=== PATIENT | male | born 1960 | race Caucasian/White ===

== ENCOUNTER → 2018-04-22 07:06 | Outpatient (CLI) | payer BC, SELFPAY ==
[2018-04-22 15:31] LABS: Alanine Aminotransferase 70 U/L (12-78); Albumin Level 3.7 gm/dL (3.4-5.0); Albumin/Globulin Ratio 1.1 (1.1-1.8); Alkaline Phosphatase 74 U/L (46-116); Anion Gap 13.2 mEq/L (5-15); Aspartate Amino Transferase 28 U/L (15-37); Bilirubin,Total 0.6 mg/dL (0.2-1.0); Blood Urea Nitrogen 17 mg/dL (7-18); Calcium 9.1 mg/dL (8.5-10.1); Carbon Dioxide 28 mmol/L (21.0-32.0); Chloride 103 mmol/L (98-107); Chol/HDL Ratio 7.2 (1-3.5); Cholesterol 286 mg/dL (140-200); Creatinine,Serum 1.03 mg/dL (0.70-1.30); Estimated Glomerular Filt Rate 74 ml/min (>60); GFR (African American) 89 ML/MIN (>60); Globulin 3.5 gm/dl (1.3-3.2); Glucose 117 mg/dL (74-106); HDL Cholesterol 40 mg/dL (27-67); LDL Cholesterol 214 mg/dL (0-130); Potassium 4.2 mmoL/L (3.5-5.1); Prostate Specific Ag Screen 1.1 ng/mL (0.0-4.0); Sodium 140 mmol/L (136-145); Total Protein,Serum 7.2 gm/dL (6.4-8.2); Triglycerides 159 mg/dL (30-200); VLDL Cholesterol 32 mg/dL (0-40)
== END ==
PROVIDERS: PCP Family Medicine; Visit Provider Family Medicine
DX: Z00.00 Encounter for general adult medical examination without abnormal findings (principal); E78.5 Hyperlipidemia, unspecified
CPT/HCPCS: 36415; 80053; 80061; G0103

== ENCOUNTER → 2018-07-25 07:05 | Outpatient (CLI) | payer BC, SELFPAY ==
[2018-07-25 13:47] LABS: Alanine Aminotransferase 56 U/L (12-78); Albumin Level 3.9 gm/dL (3.4-5.0); Albumin/Globulin Ratio 1.3 (1.1-1.8); Alkaline Phosphatase 83 U/L (46-116); Anion Gap 15.3 mEq/L (5-15); Aspartate Amino Transferase 23 U/L (15-37); Bilirubin,Total 0.4 mg/dL (0.2-1.0); Blood Urea Nitrogen 20 mg/dL (7-18); Calcium 9.4 mg/dL (8.5-10.1); Carbon Dioxide 26 mmol/L (21.0-32.0); Chloride 107 mmol/L (98-107); Chol/HDL Ratio 3.3 (1-3.5); Cholesterol 128 mg/dL (140-200); Estimated Glomerular Filt Rate 76 ml/min (>60); GFR (African American) 93 ML/MIN (>60); Globulin 3.1 gm/dl (1.3-3.2); Glucose 116 mg/dL (74-106); HDL Cholesterol 39 mg/dL (27-67); LDL Cholesterol 76 mg/dL (0-130); Potassium 4.3 mmoL/L (3.5-5.1); Sodium 144 mmol/L (136-145); Triglycerides 66 mg/dL (30-200); VLDL Cholesterol 13 mg/dL (0-40)
== END ==
PROVIDERS: PCP Family Medicine; Visit Provider Family Medicine
DX: E78.5 Hyperlipidemia, unspecified (principal)
CPT/HCPCS: 36415; 80053; 80061

== ENCOUNTER → 2019-05-29 07:05 | Outpatient (CLI) | payer OTHER, SELFPAY ==
[2019-05-29 14:16] LABS: Alanine Aminotransferase 58 U/L (21-72); Albumin Level 3.8 g/dL (3.4-5.0); Albumin/Globulin Ratio 1.2 (1.1-1.8); Alkaline Phosphatase 77 U/L (46-116); Anion Gap 13.1 mEq/L (5-15); Aspartate Amino Transferase 27 U/L (15-37); Bilirubin,Total 0.4 mg/dL (0.2-1.0); Blood Urea Nitrogen 17 mg/dL (7-18); Carbon Dioxide 28 mmol/L (21.0-32.0); Chloride 108 mmol/L (98-107); Chol/HDL Ratio 3.5 (1-3.5); Cholesterol 138 mg/dL (140-200); Creatinine,Serum 0.99 mg/dL (0.70-1.30); Estimated Glomerular Filt Rate 77 ml/min (>60); GFR (African American) 93 ML/MIN (>60); Globulin 3.2 gm/dl (1.3-3.2); Glucose 120 mg/dL (74-106); HDL Cholesterol 39 mg/dL (27-67); LDL Cholesterol 76 mg/dL (0-130); Potassium 4.1 mmoL/L (3.5-5.1); Sodium 145 mmol/L (137-145); Triglycerides 116 mg/dL (30-200); VLDL Cholesterol 23 mg/dL (0-40)
== END ==
PROVIDERS: Visit Provider Family Medicine
DX: E78.5 Hyperlipidemia, unspecified (principal); R03.0 Elevated blood-pressure reading, without diagnosis of hypertension; Z00.00 Encounter for general adult medical examination without abnormal findings; Z13.220 Encounter for screening for lipoid disorders
CPT/HCPCS: 36415; 80053; 80061

== ENCOUNTER → 2020-05-12 11:12 | Outpatient (CLI) | payer OTHER, SELFPAY | PROVIDERS: PCP Family Medicine; Visit Provider Family Medicine | DX: Z20.822 Contact with and (suspected) exposure to COVID-19 (principal); U07.1 COVID-19 | CPT/HCPCS: U0003 ==

== ENCOUNTER → 2020-08-09 07:19 | Outpatient (CLI) | payer OTHER, SELFPAY ==
[2020-08-09 14:15] LABS: Chloride 103 mmol/L (98-107)
[2020-08-09 14:16] LABS: Potassium 4.1 mmoL/L (3.5-5.1); Sodium 140 mmol/L (136-145)
[2020-08-09 14:18] LABS: Alanine Aminotransferase 51 U/L (12-78); Anion Gap 13.1 mEq/L (5-15); Aspartate Amino Transferase 34 U/L (17-59); Blood Urea Nitrogen 19 mg/dl (9-20); Carbon Dioxide 28 mmol/L (22.0-30.0); Estimated Glomerular Filt Rate 86 ml/min (>60); GFR (African American) 104 ML/MIN (>60)
[2020-08-09 14:19] LABS: Albumin Level 4.2 g/dl (3.5-5.0); Albumin/Globulin Ratio 1.6 (1.1-1.8); Alkaline Phosphatase 81 U/L (38-126); Bilirubin,Total 0.6 mg/dl (0.2-1.3); Calcium 9.4 mg/dl (8.4-10.2); Chol/HDL Ratio 4.3 (1-3.5); Cholesterol 159 mg/dl (140-200); Globulin 2.6 g/dL (1.3-3.2); Glucose 103 mg/dl (74-100); HDL Cholesterol 37 mg/dl (40-60); Total Protein,Serum 6.8 g/dl (6.3-8.2); Triglycerides 177 mg/dl (30-150); VLDL Cholesterol 35 mg/dL (0-40)
[2020-08-09 14:30] LABS: Direct LDL Cholesterol 96.56 mg/dL (100-129)
[2020-08-09 15:19] LABS: Prostate Specific Ag Screen 1.3 ng/ml (0.0-4.0)
== END ==
PROVIDERS: Visit Provider Family Medicine
DX: Z00.00 Encounter for general adult medical examination without abnormal findings (principal); E78.5 Hyperlipidemia, unspecified; K21.9 Gastro-esophageal reflux disease without esophagitis; Z12.5 Encounter for screening for malignant neoplasm of prostate
CPT/HCPCS: 36415; 80053; 80061; G0103

== ENCOUNTER 2021-05-20 19:05 | Emergency (ER) | payer OTHER, SELFPAY ==
--- NOTE | 2021-05-20 19:15 | XR_ITS ---
PROCEDURE INFORMATION: Exam: XR Right Ribs with PA Chest Exam date and time: 05/20/2021 7:15 PM Age: 61 years old Clinical indication: Injury or trauma; Fall; Rib area; Blunt trauma (contusions or hematomas); Injury date: 05/20/2021; Injury details: Fell into his truck injurying RT ribs; Additional info: Right sided rib pain after falling into truck TECHNIQUE: Imaging protocol: XR Right ribs with PA chest. Views: 3 views COMPARISON: UEAJW/ORT MRI-UP EXT ANY JNT W/O-RT 03/25/2015 1:03 PM FINDINGS: Lungs: Mild bibasilar atelectasis. No consolidation. Pleural spaces: Unremarkable. No pleural effusion. No pneumothorax. Heart/Mediastinum: Normal heart size. Bones/joints: No acute displaced rib fracture. Spondylosis. IMPRESSION: 1. No acute displaced fracture. 2. Mild bibasilar atelectasis.
[2021-05-20 19:22] VITALS: BP 156/96; PULSE 86; RESP 18; TEMP 36.7; O2SAT 96; BMI 32.5
--- NOTE | 2021-05-20 20:31 | HMH.EDGENADL ---
ED Disposition Clinical Impression: Chest wall pain Disposition: Home, Self-Care Condition on Discharge: Good Referrals: Ric Chowdhury MD [Primary Care Provider] - - Critical Care Critical Care Time: No Attestation: On 05/20/21, the high probability of a clinically significant, sudden or life threatening deterioration of the following system(s) required my full and direct attention, intervention and personal management. The time I documented below is in addition to time spent performing reported procedures but includes the following listed in this critical care notation. Medical Decision Making - Medical Records Medical records reviewed: Yes: I reviewed the patient's medical records. - Maico Inquiry Pt receiving controlled substance: No Vital Signs: 05/20/21 19:22 05/20/21 20:32 Temperature 98.0 F 98.2 F Temperature Source Oral Oral Pulse Rate 81 Pulse Rate [Apical] 86 Respiratory Rate 18 20 Blood Pressure 159/90 H Blood Pressure [Right Arm] 156/96 H Blood Pressure Mean [Right Arm] 116 Blood Pressure Source Automatic Cuff Blood Pressure Source [Right Arm] Manual Cuff/ Doppler Blood Pressure Position Sitting Blood Pressure Position [Right Arm] Sitting 02 Sat by Pulse Oximetry 96 Oxygen Delivery Method Room Air Room Air Medical Decision Narrative: Pt to the ED today for further evaluation after falling into his car door causing right sided chest pain. Pt is well appearing, in no acute distress with normal and stable vital signs. Pt does not want further pain medication management at this time. We will obtain a CXR and rib series on the right side for further evaluation of fracture. On reassessment he has remained stable, hes got no evidence of rib fractures that are displaced. Given this we will DC to [facility] with PCP. Pt given return precautions to return to the ED with any new or worsening sympotms and has verbalized understanding with this plan. General Adult HPI - General Chief complaint: Fall Stated complaint: AO02/05@1800 right rib injury Time Seen by Provider: 05/20/21 19:15 Mode of Arrival: Ambulatory Limitations: No Limitations Description of Symptoms (Recalled from ER Triage Doc. by RN): Pt states that roughly one hour ago he had his door open to his truck while carrying in groceries when he slipped on the ice and fell into his front seat of his truck hitting the right side of his ribs. Denies any other injuries and states that the fall just knocked the wind out of him. - History of Present Illness HPI narrative: Pt presents to the ED with chest wall pain after a fall, states taht he was reaching into the truck to get a hold of the steering wheel after the truck started to slip on ice. States that he fell on the door of his truck and hit the right side of his chest on the door. 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 Endorses chest wall pain that was not occurring prior and is mildly worse with breath, states his wanted him to come in. - Related Data Allergies Allergy/AdvReac Type Severity Reaction Status Date / Time ciprofloxacin [From CIPRO] Allergy Intermediate I-HIVES Unverified 04/02/17 15:31 [facility] History - Hepatitis A Screen Drug use history?: No High risk sexual behaviors?: No History of sexually transmitted infection?: No Currently employed?: No Childcare worker?: No Do you have indoor plumbing?: Yes Do you have electricity?: Yes Attestation statement:: This patient has been screened for Hepatitis A risk factors. ROS Obtained: Yes All systems reviewed & no additional complaints - Constitutional Constitutional: Reports system reviewed and no additional complaints, except as docu Physical Exam - General General appearance: alert, in no apparent distress - Head Head exam: atraumatic, normocephalic, normal inspection - Eye Eye exam: Present: normal appearance, EOMI - ENT ENT exam: Pres
[2021-05-20 20:32] VITALS: BP 159/90; PULSE 81; RESP 20; TEMP 36.8; O2SAT 99
== END 2021-05-20 20:38 | disposition home or self-care (01) ==
PROVIDERS: Emergency Provider Student in an Organized Health Care Education/Training Program; PCP Family Medicine
DX: S20.211A Contusion of right front wall of thorax, initial encounter (principal); W00.0XXA Fall on same level due to ice and snow, initial encounter; Y92.019 Unspecified place in single-family (private) house as the place of occurrence of the external cause
CPT/HCPCS: 71101; 99282

== ENCOUNTER → 2021-08-24 06:08 | Outpatient (CLI) | payer OTHER, SELFPAY ==
[2021-08-24 14:21] LABS: Alanine Aminotransferase 55 U/L (12-78); Albumin Level 4.3 g/dl (3.5-5.0); Albumin/Globulin Ratio 1.8 (1.1-1.8); Alkaline Phosphatase 84 U/L (38-126); Anion Gap 12.1 mEq/L (5-15); Aspartate Amino Transferase 31 U/L (17-59); Bilirubin,Total 0.4 mg/dl (0.2-1.3); Blood Urea Nitrogen 25 mg/dl (9-20); Calcium 9.7 mg/dl (8.4-10.2); Carbon Dioxide 30 mmol/L (22.0-30.0); Chloride 104 mmol/L (98-107); Chol/HDL Ratio 4.6 (1-3.5); Cholesterol 188 mg/dl (140-200); Estimated Glomerular Filt Rate 98 ml/min (>60); GFR (African American) 119 ML/MIN (>60); Globulin 2.4 g/dL (1.3-3.2); Glucose 120 mg/dl (74-100); HDL Cholesterol 41 mg/dl (40-60); Potassium 4.1 mmoL/L (3.5-5.1); Sodium 142 mmol/L (136-145); Total Protein,Serum 6.7 g/dl (6.3-8.2); Triglycerides 192 mg/dl (30-150); VLDL Cholesterol 38 mg/dL (0-40)
[2021-08-24 14:32] LABS: Direct LDL Cholesterol 109.51 mg/dL (100-129)
[2021-08-24 14:53] LABS: Prostate Specific Ag Screen 0.8 ng/ml (0.0-4.0)
== END ==
PROVIDERS: Visit Provider Family Medicine
DX: E78.5 Hyperlipidemia, unspecified (principal); Z12.5 Encounter for screening for malignant neoplasm of prostate; I10 Essential (primary) hypertension
CPT/HCPCS: 36415; 80053; 80061; G0103

== ENCOUNTER → 2021-10-31 17:00 | Outpatient (CLI) | payer OTHER, SELFPAY ==
--- NOTE | 2021-10-31 17:09 | XR_ITS ---
PROCEDURE INFORMATION: Exam: XR Chest Exam date and time: 10/31/2021 5:10 PM Age: 61 years old Clinical indication: Patient HX: SOA, cough, HX smoker TECHNIQUE: Imaging protocol: Radiologic exam of the chest. Views: 2 views. COMPARISON: CR XR RIBS RT MIN 3V W CXR1V 05/20/2021 7:18 PM FINDINGS: Lungs: No lobar consolidation, pleural effusion or pulmonary edema. Pleural spaces: See Lungs finding. Heart/Mediastinum: Unremarkable. No cardiomegaly. Bones/joints: Unremarkable. IMPRESSION: No lobar consolidation, pleural effusion or pulmonary edema. Plain films are relatively insensitive for detecting any possible ground glass opacities.
== END ==
PROVIDERS: PCP Family Medicine; Visit Provider Family Medicine
DX: I10 Essential (primary) hypertension (principal); R05.9 Cough, unspecified
CPT/HCPCS: 71046

== ENCOUNTER → 2021-12-13 07:43 | Outpatient (CLI) | payer OTHER, SELFPAY ==
--- NOTE | 2021-12-13 | CA_ITS ---
FINAL REPORT TECHNIQUE: Grayscale, color Doppler and duplex Doppler ultrasound of the kidneys, aorta and renal arteries was performed. Multiple velocities were measured. CLINICAL HISTORY: .HTN FINDINGS: Aorta velocity: 74 cm/sec Right kidney: 11.9 cm. No evidence of hydronephrosis or mass. Right intrarenal RI: 0.69 Right renal artery velocity: 170 cm/sec. Right RAR (Renal artery-Aortic Ratio): 2.3 Left Kidney: 11.4 cm. No evidence of hydronephrosis or mass. Left intrarenal RI: 0.70 Left renal artery velocity: 205 cm/sec. Left RAR (Renal Artery-Aortic Ratio): 2.8 IMPRESSION: No evidence of significant renal artery stenosis on the right. Less than 60% renal artery stenosis on the left. CT angiogram or postcontrast MR angiogram would be more sensitive for evaluation of possible renal artery stenosis. Reviewed, Interpreted and Dictated by Hal Ontiveros III, MD Transcribed by Brittany Ortiz Authenticated and [facility]
== END ==
PROVIDERS: PCP Family Medicine; Visit Provider Family Medicine
DX: I10 Essential (primary) hypertension (principal)
CPT/HCPCS: 93976

== ENCOUNTER → 2022-05-28 13:07 | Outpatient (CLI) | payer OTHER, SELFPAY ==
--- NOTE | 2022-05-28 | CA_ITS ---
APPROVED REPORT Exam: Exercise Treadmill Technologist: Marivel Forte, Ht: 6 ft 0 in Wt: 250 lbs BSA: 2.34 m2 HR: 69 bpm BP: 152/82 mmHg Medical History Medications: Atorvastatin,,,,, Ibuprofen,,,,, BisOPROLOL,,,,, OmPEprazole,,,,, Valsartan-HCTZ,,,,, Stress Test Details Test: Ramirez HR Resting HR: 72 bpm Max Heart Rate (APMHR): 157 bpm Max HR Achieved: 133 bpm Target HR (85% APMHR): 133 bpm % of APMHR: 85 Recovery HR: 82 bpm BP Resting BP: 172/98 mmHg Max BP: 200/90 mmHg Recovery BP: 160.0/77.0 mmHg ECG Clinical Exercise duration: 09:50 min Highest Stage Achieved: III Exercise capacity: 10.1 METs Stress ECG Conclusion Symptoms: SOA/ Chest tightness. Arrhythmias/Ectopy: Rare PAC/PVC ST-T Changes: Horizontal ST depression in 3 contiguous anterior leads of almost 2mm with normalization after recovery. Report notes patient complains of chest tightness. Positive test. Recommend further workup. Test Summary REST . . . . . . . Sitting REST . . . . . . . Standing REST 09:46 0.0 0.0 72 . 172/ 98 . . Stage 1 01:00 10.0 1.7 93 . . . . Stage 1 02:00 10.0 1.7 98 . 160/ 98 . . Stage 1 03:00 10.0 1.7 100 . 160/ 98 . . Stage 2 01:00 12.0 2.5 107 . . . . Stage 2 02:00 12.0 2.5 112 . 190/102 . . Stage 2 03:00 12.0 2.5 112 . 190/102 . . Stage 3 01:00 14.0 3.4 121 . . . . Stage 3 02:00 14.0 3.4 126 . . . . Stage 3 . . . . . . . Stage held Stage 3 03:00 14.0 3.4 131 . . . . Stage 3 . . . . . . . Stage resumed Stage 3 03:50 14.0 3.4 133 . . . Stop exercise at 09:50 RECOVERY 01:00 0.0 0.0 110 . . . . RECOVERY 02:00 0.0 0.0 101 . 200/ 90 . . RECOVERY 03:00 0.0 0.0 86 . 172/ 79 . . RECOVERY 03:49 0.0 0.0 82 . 160/ 77 . . Electronically signed by : George Shelton MD 05/28/2022 19:44:45
[2022-05-28 14:26] LABS: Alanine Aminotransferase 39 U/L (12-78); Albumin Level 4.3 g/dl (3.5-5.0); Albumin/Globulin Ratio 1.6 (1.1-1.8); Alkaline Phosphatase 93 U/L (38-126); Anion Gap 11.6 mEq/L (5-15); Aspartate Amino Transferase 28 U/L (17-59); Bilirubin,Total 0.9 mg/dl (0.2-1.3); Blood Urea Nitrogen 22 mg/dl (9-20); Calcium 9.2 mg/dl (8.4-10.2); Carbon Dioxide 28 mmol/L (22.0-30.0); Chloride 106 mmol/L (98-107); Chol/HDL Ratio 3.5 (1-3.5); Cholesterol 137 mg/dl (140-200); Estimated Glomerular Filt Rate 85 ml/min (>60); GFR (African American) 103 ML/MIN (>60); Globulin 2.7 g/dL (1.3-3.2); Glucose 95 mg/dl (74-100); HDL Cholesterol 39 mg/dl (40-60); Potassium 3.6 mmoL/L (3.5-5.1); Sodium 142 mmol/L (136-145); Triglycerides 146 mg/dl (30-150); VLDL Cholesterol 29 mg/dL (0-40)
[2022-05-28 14:42] LABS: Direct LDL Cholesterol 76.21 mg/dL (100-129)
== END ==
LOC: RT 13:08
PROVIDERS: PCP Family Medicine; Visit Provider Family Medicine
DX: R07.9 Chest pain, unspecified (principal); I10 Essential (primary) hypertension; E78.5 Hyperlipidemia, unspecified
CPT/HCPCS: 36415; 80053; 80061; 93017

== ENCOUNTER 2022-06-07 08:20 | Day surgery (SDC) | payer OTHER, SELFPAY ==
[2022-06-07] VITALS (14 sets, daily range): BP systolic 115–159; BP diastolic 67–96; PULSE 52–68; RESP 15–18; O2SAT 96–100; BMI 34.0
--- NOTE | 2022-06-07 07:19 | IR_ITS ---
APPROVED REPORT Patient Location: Outpatient Pvc Monitor: DREA Rodriguez RT (R) PROCEDURES Selective coronary angiogram Drug-eluting stent deployment to the proximal and mid LAD in a contiguous manner Intravascular ultrasound to the LAD INDICATION Severe to critical coronary artery disease, High risk abnormal stress test Informed consent was obtained prior to the procedure. COMPLICATIONS None Estimated Blood Loss: Less than 10 mls TECHNIQUE One percent lidocaine used to anesthetize the right anterior aspect of the wrist. The right radial artery was accessed via the Seldinger technique. A 6 Syriac sheath was placed in the right radial artery. 2.5 mg of verapamil, 800 mcg of nitroglycerin, 1mg Lidocaine and 5000 U Heparin were given through the arterial sheath. The papa catheter was also used to perform selective coronary angiogram. At the end the diagnostic angiogram therapeutic heparin was administered giving a therapeutic ACT and the guide catheter was placed in the left main artery followed by a Choice PT extra-support wire being placed on the LAD. A 3.5 x 38 mm resolute [place] stent was deployed in the proximal to mid LAD initially at 14 reinaldo. A 3.5 x 12 mm noncompliant balloon was deployed in the proximal and mid LAD and deployed at 20 reinaldo. At the end of the procedure intravascular ultrasound probe was advanced which demonstrated the stent was not fully expanded and required additional post stent dilatation. It also demonstrated there was significant plaque distal to the first stent and the stent did not and on normal tissue/vessel. Because of this a 3 mm x 22 mm resolute Manny stent was placed in the midportion of the LAD overlapping the distal aspect of the first stent and then deployed at 14 reinaldo. The balloon was brought back and deployed at 20 reinaldo to mesh the 2 stents. Following this a 4 mm x 15 mm balloon was deployed in the proximal and midportion of the first stent and then deployed at 20 reinaldo to further post dilate. Following this intravascular ultrasound probe was advanced which demonstrated excellent stent apposition and expansion of the stent with excellent transitioning into the mid LAD. After achieving excellent angiograph results the apparatus was removed the sheath was removed good hemostasis was achieved using TR banding patient was transferred to the postop putting in stable condition ANGIOGRAPHIC RESULTS The left main artery Normal The left anterior descending artery Has critical proximal eccentric 90% stenosis followed by additional 50% mid vessel stenosis The circumflex artery Is a large codominant vessel and has a proximal 40% stenosis The right coronary artery Is codominant and has mild 10% mid vessel luminal regularities The GAUTAM ventriculogram reveals Not performed The left ventricular end-diastolic pressure Not measured IMPRESSION Critical proximal to mid LAD disease as described above with successful stenting reducing the critical disease to 0% with 2 contiguous drug-eluting stents Persistent mild to moderate disease in a proximal codominant circumflex artery PLAN 1. Brilinta 90 twice daily plus aspirin 81 mg daily 2. LDL less than 55 to be achieved with high intensity statin 3. Cardiac rehabilitation 4. Aggressive risk factor modification 5. Avoidance of tobacco products Electronically signed by : Ezequiel Ferreira MD 06/07/2022 11:13:58
[2022-06-07 09:22] LABS: Basophils % 0.9 % (0.1-2.0); Eosinophils # 0.1 K/mm3 (0.0-0.4); Eosinophils % 1.4 % (0.1-12.0); Hematocrit 41.5 % (42.0-52.0); Hemoglobin 13.7 g/dL (14.1-18.0); Lymphocytes # 1.4 K/mm3 (0.7-4.5); Lymphocytes % 30.1 % (10-50); Mean Corpuscular Volume 96.8 fl (80-94); Mean Platelet Volume 8.7 fl (7.4-10.4); Monocytes # 0.3 K/mm3 (0.1-1.0); Monocytes % 6.5 % (1.7-9.3); Neutrophils # 2.9 K/mm3 (1.8-7.8); Platelet Count 248 K/mm3 (142-424); Red Blood Count 4.28 M/mm3 (4.60-6.20); Red Cell Distribution Width 12.6 % (11.5-17.5); White Blood Count 4.8 K/mm3 (4.8-10.8)
[2022-06-07 09:26] LABS: Anion Gap 7.8 mEq/L (5-15); Blood Urea Nitrogen 19 mg/dl (9-20); Calcium 9.4 mg/dl (8.4-10.2); Carbon Dioxide 29 mmol/L (22.0-30.0); Chloride 106 mmol/L (98-107); Creatinine Clearance Estimated 122 mL/min (50-200); Estimated Glomerular Filt Rate 75 ml/min (>60); GFR (African American) 91 ML/MIN (>60); Glucose 115 mg/dl (74-100); Potassium 3.8 mmoL/L (3.5-5.1); Sodium 139 mmol/L (136-145)
[2022-06-07 11:52] LABS: CATHL Activated Clotting Time 247 SEC (74-125)
--- NOTE | 2022-06-07 13:18 | HMH.PHACL ---
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
== END 2022-06-07 15:04 | disposition home or self-care (01) ==
PROVIDERS: PCP Family Medicine; Visit Provider Internal Medicine
DX: R94.39 Abnormal result of other cardiovascular function study (principal); Z79.899 Other long term (current) drug therapy; I25.118 Atherosclerotic heart disease of native coronary artery with other forms of angina pectoris; I45.10 Unspecified right bundle-branch block; E78.5 Hyperlipidemia, unspecified; I10 Essential (primary) hypertension; Z82.49 Family history of ischemic heart disease and other diseases of the circulatory system
CPT/HCPCS: 80048; 85025; 85347; 92928; 92978; 99152; 99153; C1725; C1769; C1876; C9600; J1644; Q9967

== ENCOUNTER → 2022-06-18 08:07 | Outpatient (CLI) | payer OTHER, SELFPAY ==
[2022-06-18 09:43] LABS: Basophils # 0.1 K/mm3 (0-0.2); Basophils % 0.9 % (0.1-2.0); Eosinophils # 0.1 K/mm3 (0.0-0.4); Eosinophils % 1.5 % (0.1-12.0); Hematocrit 42.3 % (42.0-52.0); Hemoglobin 14.3 g/dL (14.1-18.0); Lymphocytes # 1.5 K/mm3 (0.7-4.5); Lymphocytes % 28.5 % (10-50); Mean Corpuscular HGB Conc 33.9 g/dL (31.8-35.4); Mean Corpuscular Volume 94.5 fl (80-94); Mean Platelet Volume 9.1 fl (7.4-10.4); Monocytes # 0.3 K/mm3 (0.1-1.0); Monocytes % 5.3 % (1.7-9.3); Neutrophils # 3.4 K/mm3 (1.8-7.8); Neutrophils % 63.8 % (37.0-80.0); Platelet Count 259 K/mm3 (142-424); Red Blood Count 4.47 M/mm3 (4.60-6.20); Red Cell Distribution Width 12.3 % (11.5-17.5); White Blood Count 5.3 K/mm3 (4.8-10.8)
[2022-06-18 09:58] LABS: Chloride 103 mmol/L (98-107); Sodium 140 mmol/L (136-145)
[2022-06-18 10:01] LABS: Blood Urea Nitrogen 16 mg/dl (9-20); Estimated Glomerular Filt Rate 85 ml/min (>60); GFR (African American) 103 ML/MIN (>60)
[2022-06-18 10:02] LABS: Calcium 9.2 mg/dl (8.4-10.2); Carbon Dioxide 26 mmol/L (22.0-30.0); Glucose 122 mg/dl (74-100)
== END ==
PROVIDERS: PCP Family Medicine; Visit Provider Internal Medicine
DX: I25.10 Atherosclerotic heart disease of native coronary artery without angina pectoris (principal); Z95.5 Presence of coronary angioplasty implant and graft
CPT/HCPCS: 36415; 80048; 85025

== ENCOUNTER 2022-06-27 13:59 | Outpatient (RCR) | payer OTHER, SELFPAY | END 2022-08-02 15:10 | disposition home or self-care (01) | LOC: PT 13:59 | PROVIDERS: Visit Provider Internal Medicine | DX: I25.10 Atherosclerotic heart disease of native coronary artery without angina pectoris (principal); Z95.5 Presence of coronary angioplasty implant and graft | CPT/HCPCS: 93798 ==

== ENCOUNTER → 2022-07-06 14:53 | Outpatient (CLI) | payer OTHER, SELFPAY ==
--- NOTE | 2022-07-06 14:57 | CA_ITS ---
APPROVED REPORT EXAM: Comprehensive 2D, Doppler, and color-flow Echocardiogram Flat Locker: Ifeoma Mayo RDCS Ht: 6 ft 0 in Wt: 245lbs BSA: 2.32 BP: 126/88 mmHg Indications: CAD,SOA 2D Dimensions LVOT 2.32 cm (M/F) 1.5-2.5 M-Mode Dimensions RVDd 2.30 cm (0.9-2.6) LA Diam 3.91 cm (1.9-4.0) LVDd 5.64 cm (3.5-5.7) Ao Diam 3.51 cm (2.0-3.7) LVDs 3.14 cm (3.5-5.7) IVSd 0.97 cm (0.6-1.1) PWd 1.05 cm (0.6-1.1) EF (Teich) 75.00% FS 44.30% EDV (Teich) 156.20 mL ESV (Teich) 39.10 mL LV Diastology E Decel Time 227.00 (160-240 msec) E/A Ratio 0.8 MED E' 6.50 (< 7 cm/sec) E'/MED E' Ratio 8.97 (>14) LAT E' 8.80 (<10 cm/sec) E/LAT E' Ratio 6.63 (>14) Aortic Valve LVOT Max 157.00 (70-110 cm/s) LVOT VTI 37.90 cm AoV Peak Raza. 168.00 (50-130 cm/s) AO Peak GR. 11.30 mmHg AO Mean GR. 5.60 (<5 mmHg) AO VTI 34.72 (18-25 cm) ROSY (VTI) 4.61 (2.5-4.5 cm2) Mitral Valve MV E Max Raza. 58.00 (40-130 cm/s) MV A Velocity 76.00 (40-130 cm/s) E/A Ratio 0.77 MV Decel. Time 227.00 (160-240 ms) MV PHT 66.00 ms Left Ventricle Left atrium is mildly enlarged, left ventricle is normal size mild concentric left ventricular hypertrophy, estimated ejection fraction 55% with no regional wall motion abnormality, grade 1 diastolic dysfunction seen without tissue Doppler evidence of raise left atrial pressure. Right Ventricle Right atrium and right ventricular mildly enlarged with normal contractility. Aortic Valve Aortic valve is minimally thickened and fibrosed there is no aortic stenosis or aortic insufficiency. Mitral Valve Mitral valve is grossly normal, there is trace mitral regurgitation. Tricuspid Valve Tricuspid grossly normal, there is trace tricuspid regurgitation, tricuspid regurgitation jet velocity is inadequate for calculation of the right ventricular systolic pressure. Pulmonic Valve Pulmonic valve is poorly visualized. Great Vessels Aortic root is normal size. Inferior vena cava is normal size with normal inspiratory collapse. Pericardium No significant pericardial effusion noted. Conclusion 1. Mild biatrial enlargement, normal left ventricular size, estimated ejection fraction 55% with no regional wall motion abnormality, grade 1 diastolic dysfunction seen without tissue Doppler evidence of raise left atrial pressure. 2. Mildly enlarged right ventricle with normal contractility. 3. Trace mitral and tricuspid regurgitation. 4. No significant pericardial effusion noted. 5. Inferior vena cava normal 7 normal inspiratory collapse. Electronically signed by : Gavino Tesfaye MD 07/06/2022 16:07:19
== END ==
PROVIDERS: PCP Family Medicine; Visit Provider Physician Assistant
DX: R06.09 Other forms of dyspnea (principal)
CPT/HCPCS: 93306

== ENCOUNTER → 2022-09-04 15:53 | Outpatient (CLI) | payer OTHER, SELFPAY ==
--- NOTE | 2022-09-04 15:58 | XR_ITS ---
FINAL REPORT CLINICAL HISTORY: HIP PAIN NO INJURY FINDINGS: Left hip Three views were obtained. There is no acute fracture or dislocation. There are mild degenerative changes of both hips and in the lower lumbar spine. No soft tissue abnormality is identified. IMPRESSION: Degenerative changes without acute bony abnormality. Reviewed, Interpreted and Dictated by Hal Ontiveros III, MD Transcribed by Yin Jeter Authenticated and [facility]
== END ==
PROVIDERS: PCP Family Medicine; Visit Provider Family Medicine
DX: M25.552 Pain in left hip (principal)
CPT/HCPCS: 73502

== ENCOUNTER 2022-10-15 07:00 | Outpatient (RCR) | payer OTHER, SELFPAY | END 2022-11-08 14:45 | disposition home or self-care (01) | LOC: PT 07:00 | PROVIDERS: PCP Family Medicine; Visit Provider Family Medicine Sports Medicine | DX: M25.552 Pain in left hip (principal); M16.12 Unilateral primary osteoarthritis, left hip | CPT/HCPCS: 97110; 97140; 97163 ==

== ENCOUNTER → 2022-11-01 09:14 | Outpatient (CLI) | payer OTHER, SELFPAY ==
[2022-11-01 10:28] LABS: Alanine Aminotransferase 60 U/L (12-78); Albumin Level 4.2 g/dl (3.5-5.0); Alkaline Phosphatase 93 U/L (38-126); Aspartate Amino Transferase 35 U/L (17-59); Bilirubin,Indirect 0.5 mg/dL (0.0-0.9); Bilirubin,Total 0.5 mg/dl (0.2-1.3); Bilirubin,Unconjugated 0.6 mg/dL (0.0-1.1); Chol/HDL Ratio 3.8 (1-3.5); Cholesterol 176 mg/dl (140-200); HDL Cholesterol 46 mg/dl (40-60); Total Protein,Serum 6.8 g/dl (6.3-8.2); Triglycerides 136 mg/dl (30-150); VLDL Cholesterol 27 mg/dL (0-40)
[2022-11-01 10:39] LABS: Direct LDL Cholesterol 102.28 mg/dL (100-129)
== END ==
PROVIDERS: PCP Family Medicine; Visit Provider Nurse Practitioner
DX: I25.10 Atherosclerotic heart disease of native coronary artery without angina pectoris (principal); I10 Essential (primary) hypertension; E78.5 Hyperlipidemia, unspecified; R94.31 Abnormal electrocardiogram [ECG] [EKG]; Z95.5 Presence of coronary angioplasty implant and graft
CPT/HCPCS: 36415; 80061; 80076

== ENCOUNTER 2023-01-09 20:01 | Emergency (ER) | payer OTHER, SELFPAY ==
[2023-01-09] VITALS (7 sets, daily range): BP systolic 168–230; BP diastolic 16–106; PULSE 74–91; RESP 18; TEMP -17.7–36.6; O2SAT 97–100; BMI 32.5
--- NOTE | 2023-01-09 20:22 | XR_ITS ---
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 Complete exam. Views: Any number of views. COMPARISON: CR XR CHEST 2V 10/31/2021 5:10 PM FINDINGS: Bones/joints: Anterior right shoulder dislocation. Possible Hill-Sachs fracture, age indeterminate. Acromioclavicular joint remains congruent. Soft tissues: Unremarkable. IMPRESSION: 1. Anterior right shoulder dislocation. 2. Possible Hill-Sachs fracture, age indeterminate.
--- NOTE | 2023-01-09 20:22 | XR_ITS ---
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 Views: 2 or more views. COMPARISON: CR XR CHEST 2V 10/31/2021 5:10 PM FINDINGS: Bones/joints: Anterior right shoulder dislocation. Possible Hill-Sachs fracture, age indeterminate. No other evidence of fracture in the right humerus. Acromioclavicular joint remains congruent. Soft tissues: Unremarkable. IMPRESSION: 1. Anterior right shoulder dislocation. 2. Possible Hill-Sachs fracture, age indeterminate.
--- NOTE | 2023-01-09 20:22 | XR_ITS ---
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 Views: 2 or more views. COMPARISON: CR XR CHEST 2V 10/31/2021 5:10 PM FINDINGS: Bones/joints: Anterior right shoulder dislocation. Possible Hill-Sachs fracture, age indeterminate. No other evidence of fracture. Acromioclavicular joint remains congruent. Soft tissues: Unremarkable. IMPRESSION: 1. Anterior right shoulder dislocation. 2. Possible Hill-Sachs fracture, age indeterminate.
--- NOTE | 2023-01-09 20:23 | HMH.EDGENADL ---
Discharge Plan Disposition Patient Disposition: Home, Self-Care Prescriptions Prescriptions: No Action [id number] oil-vit D3 120 mg-180 mg -1,000 unit capsule 1 cap PO DAILY Brilinta 90 mg tablet 90 mg PO BID Qty: 60 11RF bisoprolol fumarate 5 mg tablet 5 mg PO DAILY Qty: 90 3RF atorvastatin 40 mg tablet 40 mg PO DAILY Qty: 90 3RF meclizine 25 mg tablet 25 mg PO DAILY omeprazole 40 mg capsule,delayed release(DR/EC) See Rx Instructions .ROUTE .COMPLEX Qty: 90 1RF Dose Instruction: TAKE ONE CAPSULE BY MOUTH EVERY DAY Rx Instructions: TAKE ONE CAPSULE BY MOUTH EVERY DAY valsartan 160 mg tablet 160 mg PO DAILY Qty: 90 1RF aspirin 81 mg Tablet,Delayed Release (Dr/Ec) 81 mg PO DAILY Qty: 31 3RF Referrals Follow up/Referrals: Mumtaz Melendez DO [Staff Physician] - See instructions Ric Chowdhury MD [Primary Care Provider] - See instructions Activity Restrictions/Add. Instructions Additional Instructions/Restrictions: At this time is felt you are safe to be discharged home. If new or worsening symptoms please do not hesitate to return the emergency department. Please wear your sling until follow-up with Dr. Melendez. Please call and schedule follow-up with Dr. Melendez as soon as you are able. Clinical Impressions Clinical Impression: Anterior dislocation of right shoulder Instructions Patient Instructions: DI for Shoulder Dislocation, DI for Moderate Sedation Discharge ED Provider: Bandar Bello General Adult HPI General Chief complaint: PAIN Stated complaint: AO 01/09 fall, right shoulder pain Time Seen by Provider: 01/09/23 20:16 Mode of Arrival: Ambulatory Source of Information: Patient Limitations: Physical Limitations Description of Symptoms (Recalled from ER Triage Doc. by RN): ginger crenshaw went to tip over and patient extended his left arm to try to catch himself mower turned over on other side; patient states pain 8/10 in right arm. History of Present Illness HPI narrative: Patient is a 62-year-old male with past medical history of previous right shoulder surgery who presents to emergency department for evaluation of traumatic right shoulder pain. Patient was mowing his yard when lawnmower tilted down an embankment and he attempted to stop it with his right arm. Since then patient has had severe pain in his shoulder with limited mobility at his shoulder. Lumbar did not pin patient's head, chest, abdomen. Isolated shoulder trauma. Patient is complaining of severe pain in his right shoulder with range of motion. No LOC. No other acute complaints at this time. Related Data Home Medications Medication Instructions Recorded Confirmed omega-3-dha 120 mg-epa 180 mg-fish 1 cap PO DAILY Supplement 06/05/22 11/01/22 oil-vitamin D3 1,000 unit capsule meclizine 25 mg tablet 25 mg PO DAILY 08/02/22 11/01/22 Previous Rx's Medication Instructions Recorded aspirin 81 mg tablet,delayed 81 mg PO DAILY #31 tabs 06/07/22 release atorvastatin 40 mg tablet 40 mg PO DAILY Cholesterol #90 tabs 06/18/22 bisoprolol fumarate 5 mg tablet 5 mg PO DAILY High blood pressure 06/18/22 #90 tabs ticagrelor 90 mg tablet (Brilinta) 90 mg PO BID #60 tabs 06/18/22 omeprazole 40 mg capsule,delayed See Rx Instructions .Route 11/05/22 release .COMPLEX #90 caps valsartan 160 mg tablet 160 mg PO DAILY #90 tabs 12/04/22 Allergies Allergy/AdvReac Type Severity Reaction Status Date / Time ciprofloxacin [From CIPRO] Allergy Intermediate I-HIVES Verified 11/01/22 08:30 [facility] Disclaimer: The information contained in this section may have been updated after the patient was seen, as this information can be updated by other users. Medical History Abnormal cardiovascular stress test Abnormal electrocardiogram [ECG] [EKG] Coronary artery disease MAY 2022-Critical proximal to mid LAD disease as described
--- NOTE | 2023-01-09 21:07 | PC.NURSE ---
Reassessed pain patient states 10/22 after initial medications. Provider notified.
--- NOTE | 2023-01-09 21:11 | PC.NURSE ---
Provider ordered Oxycodone 5mg for pain; patient wants to wait a little longer before taking. Concerned about taking narcotic and needing to drive his truck home if in system.
--- NOTE | 2023-01-09 21:59 | XR_ITS ---
PROCEDURE INFORMATION: Exam: XR Right Shoulder Exam date and time: 01/09/2023 10:37 PM Age: 62 years old Clinical indication: Screening exam; Post reduction TECHNIQUE: Imaging protocol: Radiologic exam of the right shoulder. Views: Single scapular Y-view COMPARISON: CR XR SHOULDER RT MIN 2V 01/09/2023 8:42 PM FINDINGS: Bones/joints: Successful reduction of right glenohumeral dislocation. Limited evaluation for fracture on single scapular Y-view provided. Soft tissues: Unremarkable. IMPRESSION: Successful reduction of right glenohumeral dislocation.
--- NOTE | 2023-01-09 22:02 | ECG_ITS ---
APPROVED REPORT Exam: Resting ECG HR:67 bpm ECG Measurements Heart Rate 67 AXES SD 175 P 40 QRSd 105 QRS 46 QT 406 T 9 QTc 422 Conclusion SINUS RHYTHM POSSIBLE RIGHT VENTRICULAR CONDUCTION DELAY [RSR (QR) IN V1/V2] NONSPECIFIC ST & T-WAVE ABNORMALITY BORDERLINE ECG UNCONFIRMED REPORT Electronically signed by : George Shelton MD 01/10/2023 17:18:34
== END 2023-01-09 23:35 | disposition home or self-care (01) ==
PROVIDERS: Emergency Provider Emergency Medicine; PCP Family Medicine
DX: S43.014A Anterior dislocation of right humerus, initial encounter (principal); X50.0XXA Overexertion from strenuous movement or load, initial encounter; I25.118 Atherosclerotic heart disease of native coronary artery with other forms of angina pectoris; E78.5 Hyperlipidemia, unspecified
CPT/HCPCS: 73000; 73020; 73030; 73060; 93005; 99285

== ENCOUNTER → 2023-01-30 16:20 | Outpatient (CLI) | payer OTHER, SELFPAY ==
--- NOTE | 2023-01-30 16:21 | MR_ITS ---
FINAL REPORT CLINICAL HISTORY: rt shoulder pain. PATIENT FELL AND DISLOCATED SHOULDER 3 WEEKS AGO. LIMITED ROM. WEAKNESS IN ARM. HX SHOULDER SURGERY 10YEARS AGO FINDINGS: Multiplanar MR imaging of the right shoulder was performed without contrast. There are postoperative changes from rotator cuff repair. There is a focal full-thickness tear at the anterior footprint of the supraspinatus tendon measuring 10 mm in AP dimension. There is thinning of the distal infraspinatus tendon without a full-thickness tear. There is a full-thickness tear of the superior distal subscapularis tendon. There is mild AC joint arthrosis. An os acromiale is seen as a variant. There is Hill-Sachs deformity with bone bruise of the posterior humeral head. The labrum is partially obscured by motion but there are probably tears of the anterior/inferior and posterior/inferior labrum. There is medial dislocation of the long head of the biceps tendon. There is abnormal signal at the humeral attachment of the inferior glenohumeral ligaments. The appearance is worrisome for HAGL. Moderate to severe infraspinatus muscle atrophy is identified. IMPRESSION: Tears of the supraspinatus and subscapularis tendons as detailed above. Significant infraspinatus muscle atrophy. Labral tears Findings worrisome for HAGL. Reviewed, Interpreted and Dictated by Hal Ontiveros III, MD Transcribed by Yin Jeter Authenticated and [facility]
== END ==
PROVIDERS: PCP Family Medicine; Visit Provider Orthopaedic Surgery
DX: M25.511 Pain in right shoulder (principal); S43.014A Anterior dislocation of right humerus, initial encounter
CPT/HCPCS: 73221

== ENCOUNTER 2023-05-06 09:05 | Outpatient (CLI) | payer OTHER, SELFPAY ==
[2023-05-06 09:37] LABS: Basophils % 0.6 % (0.1-2.0); Eosinophils # 0.1 K/mm3 (0.0-0.4); Eosinophils % 1.3 % (0.1-12.0); Hematocrit 42.6 % (42.0-52.0); Hemoglobin 14.3 g/dL (14.1-18.0); Lymphocytes # 1.6 K/mm3 (0.7-4.5); Lymphocytes % 28.7 % (10-50); Mean Corpuscular HGB Conc 33.5 g/dL (31.8-35.4); Mean Corpuscular Hemoglobin 31.7 pg (27.0-31.2); Mean Corpuscular Volume 94.6 fl (80-94); Mean Platelet Volume 8.9 fl (7.4-10.4); Monocytes # 0.3 K/mm3 (0.1-1.0); Monocytes % 5.6 % (1.7-9.3); Neutrophils # 3.6 K/mm3 (1.8-7.8); Neutrophils % 63.8 % (37.0-80.0); Platelet Count 169 K/mm3 (142-424); Red Cell Distribution Width 13.4 % (11.5-17.5); White Blood Count 5.6 K/mm3 (4.8-10.8)
[2023-05-06 10:57] LABS: Chloride 103 mmol/L (98-107); Potassium 3.6 mmoL/L (3.5-5.1); Sodium 140 mmol/L (136-145)
[2023-05-06 11:00] LABS: Alanine Aminotransferase 55 U/L (12-78); Albumin Level 4.1 g/dl (3.5-5.0); Alkaline Phosphatase 91 U/L (38-126); Anion Gap 10.6 mEq/L (5-15); Aspartate Amino Transferase 40 U/L (17-59); Bilirubin,Direct 0.6 mg/dl (0.0-0.4); Bilirubin,Total 0.6 mg/dl (0.2-1.3); Blood Urea Nitrogen 17 mg/dl (9-20); Carbon Dioxide 30 mmol/L (22.0-30.0); Cholesterol 170 mg/dl (140-200); Estimated Glomerular Filt Rate 85 ml/min (>60); GFR (African American) 103 ML/MIN (>60); Glucose 129 mg/dl (74-100); Total Protein,Serum 6.7 g/dl (6.3-8.2); Triglycerides 250 mg/dl (30-150); VLDL Cholesterol 50 mg/dL (0-40)
[2023-05-06 11:01] LABS: Chol/HDL Ratio 4.5 (1-3.5); HDL Cholesterol 38 mg/dl (40-60); Magnesium 1.7 mg/dl (1.6-2.3)
[2023-05-06 11:15] LABS: Direct LDL Cholesterol 95.93 mg/dL (100-129)
[2023-05-06 11:24] LABS: Free T4 (Free Thyroxine) 0.86 ng/dl (0.78-2.19)
[2023-05-06 11:37] LABS: Thyroid Stimulating Hormone 0.93 uIU/mL (0.465-4.68)
== END 2023-05-06 23:59 ==
LOC: LAB 09:05
PROVIDERS: PCP Family Medicine; Visit Provider Nurse Practitioner
DX: E78.2 Mixed hyperlipidemia (principal); I11.9 Hypertensive heart disease without heart failure; I25.10 Atherosclerotic heart disease of native coronary artery without angina pectoris; R06.09 Other forms of dyspnea; Z95.5 Presence of coronary angioplasty implant and graft
CPT/HCPCS: 36415; 80048; 80061; 80076; 83735; 84439; 84443; 85025

== ENCOUNTER 2023-06-25 15:00 | Outpatient (RCR) | payer OTHER, SELFPAY | END 2023-06-25 15:30 | disposition home or self-care (01) | LOC: PT 15:00 | PROVIDERS: PCP Family Medicine; Visit Provider Orthopaedic Surgery | DX: M75.101 Unspecified rotator cuff tear or rupture of right shoulder, not specified as traumatic (principal); Z98.890 Other specified postprocedural states | CPT/HCPCS: 97010; 97014; 97110; 97140; 97163; 97164; 97530; G0283 ==

== ENCOUNTER 2024-02-18 08:07 | Outpatient (CLI) | payer OTHER, SELFPAY ==
--- NOTE | 2024-02-18 08:11 | XR_ITS ---
PROCEDURE INFORMATION: Exam: XR Chest Exam date and time: 02/18/2024 8:17 AM Age: 63 years old Clinical indication: Other: Poss pneu; Additional info: Poss rll/rml pneumonia TECHNIQUE: Imaging protocol: Radiologic exam of the chest. Views: 2 views. COMPARISON: CR XR CHEST 2V 10/31/2021 5:10 PM FINDINGS: Lungs: Mildly reduced lung volumes. No consolidation. Pleural spaces: No pleural effusion. No pneumothorax. Heart/Mediastinum: Cardiac size is normal and mediastinal contour stable. Coronary artery calcification and/or stents. Few calcified lymph nodes. Bones/joints: Bones are stable. Degenerative changes. IMPRESSION: No acute findings.
== END 2024-02-18 23:59 | disposition home or self-care (01) ==
LOC: RAD 08:09
PROVIDERS: PCP Family Medicine; Visit Provider Family Medicine
DX: J18.9 Pneumonia, unspecified organism (principal)
CPT/HCPCS: 71046

== ENCOUNTER 2024-05-27 14:18 | Outpatient (CLI) | payer MEDICARE, SELFPAY ==
--- NOTE | 2024-05-27 14:25 | XR_ITS ---
FINAL REPORT CLINICAL HISTORY: BRONCHITIS COMPARISON: 02/18/2024 FINDINGS: No acute pulmonary density is evident. There is no evidence of effusion or other pleural disease. The mediastinum has a normal appearance. The cardiac silhouette is unremarkable. IMPRESSION: Unremarkable chest exam. Reviewed, Interpreted and Dictated by Destinee Liang MD Transcribed by Jennifer Licea Authenticated and [facility]
== END 2024-05-27 23:59 | disposition home or self-care (01) ==
LOC: RAD 14:20
PROVIDERS: PCP Family Medicine; Visit Provider Physician Assistant
DX: J40 Bronchitis, not specified as acute or chronic (principal)
CPT/HCPCS: 71046

== ENCOUNTER 2024-07-01 12:12 | Outpatient (CLI) | payer MEDICARE, SELFPAY ==
--- NOTE | 2024-07-01 | CA_ITS ---
APPROVED REPORT Exam: Pharmacologic Technologist: Marivel Forte Ht: 6 ft 0 in Wt: 245 lbs BSA: 2.32 m2 Stress Test Details Test: Lexiscan Reason for pharmacologic stress test: physical limitation. HR Resting HR: 59 bpm Max Heart Rate (APMHR): 155.681017 bpm Max HR Achieved: 80 bpm Target HR (85% APMHR): 131.063927 bpm % of APMHR: 51.61 Recovery HR: 72 bpm BP Resting BP: 149.0/68.0 mmHg Max BP: 150.0/81.0 mmHg Recovery BP: 150.0/81.0 mmHg ECG Resting ECG: SR. No isch. ectopy Stress ECG Conclusion Mild SOA with injection. Symptoms: None. Arrhythmias/Ectopy: None Lexiscan. ST-T Changes: None Lexiscan. Electronically signed by : Orly Barrow MD 07/02/2024 12:29:12
--- NOTE | 2024-07-01 12:12 | NM_ITS ---
APPROVED REPORT Exam: Nuclear Stress Test Indication: cad, htn, hyperlipidemia, fm hx, c.p., abn ekg Patient Location: Outpatient Stress Tech: Marivel Lombardo ME Tech:DREA Diaz RT (R)(N)(M) Ht: 5 ft 9 in Wt: 245 lbs HR: 59 bpm BP: 149/68 mmHg BSA: 2.25 m2 TID: 1.20 BMI: 36.1 History: cad, htn, hyperlipidemia, fm hx, c.p., abn ekg Procedure: Patient received 0.4 mg of intravenous Lexiscan, resting heart rate 59 bpm, resting blood pressure 149/68 mmHg, with Lexiscan maximum heart rate achieved was 80 bpm which is % of the maximum predicted heart rate and blood pressure was 140/75 mmHg. With Lexiscan, patient denied any complaint of chest pain. Cardiac Stress and Resting SPECT Images: Cardiac Stress and Resting SPECT images were obtained using technetium 99m Myoview 31.3 mCi stress and 10.06 mCi at rest. Resting and stress imaging in supine and prone positions demonstrate no evidence of fixed or reversible perfusion defects. There is borderline increase in transient ischemic dilatation ratio (TID 1.20), suggestive of possible multivessel disease or balanced ischemia. Gated imaging demonstrates normal global and regional LV systolic function. LVEF is calculated at 56%. Conclusion: No evidence of fixed or reversible perfusion defects. There is borderline increase in transient ischemic dilatation ratio (TID 1.20), suggestive of possible multivessel disease or balanced ischemia. Gated imaging demonstrates normal global and regional LV systolic function. LVEF is calculated at 56%. In the setting of borderline TID but with otherwise normal LV systolic function, further evaluation noninvasively with CCTA suggested prior to proceeding with invasive coronary angiography. Electronically signed by : Orly Barrow MD 07/02/2024 12:24:19
--- NOTE | 2024-07-01 12:12 | CA_ITS ---
APPROVED REPORT EXAM: Comprehensive 2D, Doppler, and color-flow Echocardiogram Brake Operator Heavy Duty: Ifeoma Mayo RDCS Ht: 6 ft 0 in Wt: 245lbs BSA: 2.32 BP: 134/72 mmHg Indications: SOA,CP,CAD,HTN,HLP M-Mode Dimensions RVDd 2.13 cm (0.9-2.6) LA Diam 4.27 cm (1.9-4.0) LVDd 5.70 cm (3.5-5.7) LVDs 3.91 cm (3.5-5.7) IVSd 0.65 cm (0.6-1.1) PWd 0.72 cm (0.6-1.1) EF (Teich) 58.60% FS 31.40% EDV (Teich) 160.00 mL ESV (Teich) 66.30 mL LV Diastology E Decel Time 227 (160-240 msec) E/A Ratio 1.2 Aortic Valve ROSY Index 1.72 cm2/m2 AoV Peak Raza. 141.0 (50-130 cm/s) AO Peak GR. 7.90 mmHg AO Mean GR. 3.90 (<5 mmHg) AO VTI 28.8 (18-25 cm) ROSY (VTI) 4.09 (2.5-4.5 cm2) Mitral Valve MV E Max Raza. 76.0 (40-130 cm/s) MV A Velocity 63.0 (40-130 cm/s) E/A Ratio 1.20 MV PHT 66.0 ms Left Ventricle The left ventricle is normal size. The left ventricular systolic function is normal. The left ventricular ejection fraction is within the normal range. There is normal left ventricular wall thickness. There is normal LV segmental wall motion. The left ventricular diastolic function is normal. LVEF is 60%. Right Ventricle The right ventricle is mildly dilated. The right ventricular systolic function is normal. Atria The left atrium size is normal. The right atrium size is normal. There is no Doppler evidence of interatrial shunt. Aortic Valve The aortic valve is mildly thickened. There is no aortic valvular stenosis. Trace aortic regurgitation is present. Mitral Valve The mitral valve is normal in structure. Trace mitral regurgitation. Tricuspid Valve Tricuspid valve is grossly normal in structure and function. Trace tricuspid regurgitation. There is insufficient TR jet to estimate RVSP. Pulmonic Valve The pulmonary valve is normal in structure. Trace pulmonic regurgitation. Great Vessels The aortic root is normal in size. IVC is normal in size and collapses >50% with inspiration. Pericardium There is no pericardial effusion. Other Information Study Quality: Fair Conclusion Normal biventricular systolic function. Mild RV dilation. No significant valvular stenosis or regurgitation. Electronically signed by : Orly Barrow MD 07/07/2024 14:07:13
[2024-07-01] MEDS: REGADENOSON 0.4MG/5ML SYRINGE 0.4 MG IV (14:22)
[2024-07-01] MEDS: SODIUM CHLORIDE 0.9% 10ML SYR (RAD ONLY) 10 ML IV ×2 (14:23)
[2024-07-01] MEDS: ISOTOPE MYOVIEW (PER STUDY) 1 DOSE IV (14:23)
== END 2024-07-01 23:59 | disposition home or self-care (01) ==
LOC: RAD 12:12
PROVIDERS: PCP Family Medicine; Visit Provider Internal Medicine
DX: I25.10 Atherosclerotic heart disease of native coronary artery without angina pectoris (principal); I10 Essential (primary) hypertension
CPT/HCPCS: 78452; 93017; 93018; 93306; A9502; J2785

== ENCOUNTER 2024-07-14 07:49 | Day surgery (SDC) | payer MEDICARE, SELFPAY ==
[2024-07-14] VITALS (13 sets, daily range): BP systolic 91–172; BP diastolic 58–84; PULSE 52–65; RESP 16–20; O2SAT 96–100; BMI 33.7
--- NOTE | 2024-07-14 07:08 | IR_ITS ---
APPROVED REPORT Patient Location: Outpatient PROCEDURES Left heart catheterization Left ventriculogram Selective coronary angiogram INDICATION Abnormal stress test, Known coronary artery disease Informed consent was obtained prior to the procedure. COMPLICATIONS NONE Estimated Blood Loss: LESS THAN 10 ML TECHNIQUE One percent lidocaine used to anesthetize the right anterior aspect of the wrist. The right radial artery was accessed via the Seldinger technique. A 6 Armenian sheath was placed in the right radial artery. 2.5 mg of Verapamil, 800 mcg of nitroglycerin, 1mg Lidocaine and 5000 U Heparin were given through the arterial sheath. The J L3 catheter was also used to perform left heart catheterization, left ventriculogram and selective coronary angiogram. At the end of the procedure the sheath was removed good hemostasis was achieved using Traclet band, patient was transferred to the postop holding area in stable condition. ANGIOGRAPHIC RESULTS The left main artery Normal The left anterior descending artery Is proximally normal and then has a stent in the proximal to mid segment which is widely patent. The mid LAD stent has an eccentric 30% stenosis. There is excellent proximal distal transitioning of the stent. The remaining LAD is widely patent The circumflex artery Is dominant and has a large-caliber vessel giving rise to a large diameter first and second obtuse marginal artery. The proximal circumflex artery has 20 and 30% stenoses all the obtuse marginal arteries are widely patent The right coronary artery Is nondominant yet still large with mild 10% luminal regularities The GAUTAM ventriculogram reveals Normal 60% The left ventricular end-diastolic pressure 10 mmHg IMPRESSION Coronary artery disease as described above Normal ejection fraction Normal LVEDP PLAN 1. Medical management with risk factor modification Electronically signed by : Ezequiel Ferreira MD 07/16/2024 13:02:19
[2024-07-14 08:17] LABS: Basophils % 0.4 % (0.1-2.0); Eosinophils # 0.1 K/mm3 (0.0-0.4); Eosinophils % 1.3 % (0.1-12.0); Hematocrit 41.2 % (42.0-52.0); Hemoglobin 13.8 g/dL (14.1-18.0); Lymphocytes # 1.6 K/mm3 (0.7-4.5); Lymphocytes % 34.7 % (10-50); Mean Corpuscular HGB Conc 33.5 g/dL (31.8-35.4); Mean Corpuscular Hemoglobin 31.4 pg (27.0-31.2); Mean Corpuscular Volume 93.6 fl (80-94); Mean Platelet Volume 10.6 fl (7.4-10.4); Monocytes # 0.4 K/mm3 (0.1-1.0); Neutrophils # 2.5 K/mm3 (1.8-7.8); Neutrophils % 55.6 % (37.0-80.0); Platelet Count 216 K/mm3 (142-424); Red Cell Distribution Width 12.7 % (11.5-17.5); White Blood Count 4.5 K/mm3 (4.8-10.8)
[2024-07-14 08:24] LABS: Chloride 102 mmol/L (98-107); Potassium 3.9 mmoL/L (3.5-5.1); Sodium 142 mmol/L (136-145)
[2024-07-14 08:27] LABS: Anion Gap 11.9 mEq/L (5-15); Blood Urea Nitrogen 15 mg/dl (9-20); Calcium 9.4 mg/dl (8.4-10.2); Carbon Dioxide 32 mmol/L (22.0-30.0); Creatinine Clearance Estimated 118 mL/min (50-200); Estimated Glomerular Filt Rate 85 ml/min (>60); GFR (African American) 102 ML/MIN (>60); Glucose 121 mg/dl (74-100)
[2024-07-14] MEDS: HEPARIN 1,000 UNITS/ML 10ML VIAL (CATH LAB) 10000 UNIT IV (10:45)
[2024-07-14] MEDS: diphenhydrAMINE 50MG/ML VIAL 50 MG IV (10:45)
[2024-07-14] MEDS: LIDOCAINE 1% 10ML MDV 20 ML IJ (10:45)
[2024-07-14] MEDS: VERAPAMIL 2.5MG/ML 2ML VIAL 2.5 MG IV (10:46)
[2024-07-14] MEDS: HEPARIN 1,000 UNITS/500ML NS (CATH LAB) 3000 UNIT IV (10:46)
[2024-07-14] MEDS: 0.9 % SODIUM CHLORIDE 500 ML 25 ML IV (10:47)
[2024-07-14] MEDS: NITROGLYCERIN 800MCG/8ML SYR (CATH LAB) 800 MCG IA (10:47)
[2024-07-14] MEDS: FENTANYL 100MCG/2ML VIAL 50 MCG IV (11:24)
[2024-07-14] MEDS: MIDAZOLAM HCL 1MG/ML 5ML VIAL 1 MG IV (11:24)
[2024-07-14] MEDS: IOPAMIDOL-370 (76%);100ML BOTTLE 60 ML IV (14:38)
== END 2024-07-14 14:01 | disposition home or self-care (01) ==
PROVIDERS: PCP Family Medicine; Visit Provider Internal Medicine
DX: I25.118 Atherosclerotic heart disease of native coronary artery with other forms of angina pectoris (principal); R94.39 Abnormal result of other cardiovascular function study; R94.31 Abnormal electrocardiogram [ECG] [EKG]; Z95.5 Presence of coronary angioplasty implant and graft; Z88.1 Allergy status to other antibiotic agents; Z79.899 Other long term (current) drug therapy; Z82.49 Family history of ischemic heart disease and other diseases of the circulatory system; E78.5 Hyperlipidemia, unspecified; I10 Essential (primary) hypertension; F10.90 Alcohol use, unspecified, uncomplicated; K21.9 Gastro-esophageal reflux disease without esophagitis
CPT/HCPCS: 80048; 85025; 93458; 99152; C1725; C1769; J1200; J1644; J3010; Q9967

== ENCOUNTER → 2024-08-27 07:15 | Outpatient (CLI) | payer MEDICARE, SELFPAY | LOC: SL 07:16 | PROVIDERS: PCP Nurse Practitioner Family; Visit Provider Nurse Practitioner Family | DX: G47.33 Obstructive sleep apnea (adult) (pediatric) (principal); G47.36 Sleep related hypoventilation in conditions classified elsewhere; R40.0 Somnolence; R06.83 Snoring; I37.1 Nonrheumatic pulmonary valve insufficiency; I51.7 Cardiomegaly; I10 Essential (primary) hypertension | CPT/HCPCS: G0399 ==

== ENCOUNTER 2024-10-22 08:36 | Outpatient (CLI) | payer MEDICARE, SELFPAY ==
--- OUTSIDE RECORDS SUMMARY | 2024-03-17 05:00 | XMS_ITS ---
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 Name Role Phone Consuelo Chowdhury Primary Care Provider Allergies Allergen (clinical drug ingredient) Drug/Non Drug Allergy documented on EMR Reaction Allergy Type Onset Date Status cefaclor Cefaclor rash Drug Allergy Active Medicinal cephalosporin and acting as antibacterial agent (FN) Cephalosporins Unknown Drug Allergy Active Results Component Value Reference Range Notes P-Comprehensive Metabolic Pa matt (CMP) Reviewed date:03/19/2024 08:42:50 AM Interpretation:gluc 114 Performing Lab: Notes/Report: Test performed by [facility] [address] [place] [address] , [address], [place] [address] Figueroa Fernandez MD, Test Engineer CLIA: [id number] Sodium 143 135-145 mmol/L Potassium 3.8 3.5-5.3 mmol/L Chloride 104 97-108 mmol/L CO2 25 22-32 mmol/L Glucose 114 65-99 mg/dL BUN 16 8-23 mg/dL Creatinine 1.05 0.70-1.30 mg/dL Calcium 9.8 8.6-10.4 mg/dL eGFR by Creatinine 79 >59 mL/min/1.73m2 Protein 7.1 6.0-8.3 g/dL Albumin 4.5 3.5-5.3 g/dL Alkaline Phosphatase 90 40-129 IU/L ALT (SGPT) 51 <5-55 IU/L AST (SGOT) 26 <5-46 IU/L Bilirubin, Total 0.5 <0.2-1.2 mg/dL A/G Ratio 1.7 1.1-2.5 P-Lipid Panel Reviewed date:03/19/2024 08:42:50 AM Interpretation:LDL 89, trigs 164 Performing Lab: Notes/Report: Test performed by [facility] [address] [place] [address] , [address], [place] [address] Figueroa Fernandez MD, Test Engineer CLIA: [id number] Cholesterol 166 <200 mg/dL Triglycerides 164 <150 mg/dL HDL Cholesterol 44 >39 mg/dL Cholesterol / HDL Ratio 3.77 0.00-4.99 Ratio Non-HDL Cholesterol 122 <130 mg/dL LDL Cholesterol (Calculation) 89 <130 mg/dL LDL Cholesterol Levels* Less than 100 mg/dL Optimal 100 to 129 mg/dL Near Optimal/ Above Optimal 130 to 159 mg/dL Borderline High 160 to 189 mg/dL High 190 mg/dL and above Very High * Categories as recommended by the 2004 ATPIII guidelines LDL/HDL Ratio 2.0 <3.3 Ratio LDL Cholesterol Patient History Test Date: 03/17/2024 LDL Results: 89 Units: mg/dL % Change: - P-PSA Reviewed date:03/19/2024 08:42:50 AM Interpretation:1.20 Performing Lab: Notes/Report: Test performed by [facility] [address] [place] [address] , [address], [place] [address] Figueroa Fernandez MD, Test Engineer CLIA: [id number] PSA 1.20 <4.00 ng/mL Please note this is an ultrasensitive PSA assay with a lower limit of detection of 0.014 ng/mL. This test is performed by the Sonya ECLIA methodology. Values obtained with different assay methods or kits cannot be directly compared. REASON FOR VISIT Check Up, Needs labs with PSA & flu vaccine Medications Medication SIG (Take, Route, Frequency, Duration) Notes Start Date End Date Status Aspirin 81 MG 1 tab(s) orally once a day; Duration: 30 day(s) Active Fish Oil 1200 MG 1 cap(s) orally once daily Active Valsartan 160 MG 1 tablet Orally Once a day Active Diclofenac Sodium 75 MG 1 tablet as need ed Orally Twice a day Active Bisoprolol Fumarate 5 MG 1 tab(s) orally once a day Active Atorvastatin Calcium 40 MG 1 tab(s) oral ly once a day Active hydroCHLOROthiazide 25 MG 1 tablet in th e morning Orally Once a day Active Omeprazole 40 MG 1 cap(s) orally once a day Active methylPREDNISolone 4 MG as directed 08/18/2021 Not-Taking Advil 200 MG 1 tab(s) orally ever y 6 hours Not-Taking dexAMETHasone 4 MG 1 tab(s) orally 2 times a day; Duration: 5 day(s) 05/24/2021 Not-Taking Meclizine HCl 25 MG 1 tab(s) orally 3 times a day 07/26/2022 Not-Taking Cyclobenzaprine HCl 5 MG 1 tab(s) orally 3 times a day as needed 05/24/2021 Not-Taking Problems Problem Type SNOMED Code ICD Code Onset Dates Problem Status W/U Status Risk Notes Problem ASCVD (arteriosclerotic cardiovascular disease) (I25.10) Active confirmed Vital Signs Weight 250.8 lbs 03/17/2024 Blood pressure systolic 126 mm Hg 03/17/20 24 Blood pressure diastolic 70 mm Hg 024 Heart Rate 62 /min 03/17/2024 Height 69.50 in 03/17/2024 BMI 36.50 kg/m2 03/17/2024 Encounters Encounter Location Date Provider Diagnosis [facility] [address] [place] [id number] 03/17/2024 Consuelo Chowdhury Dyslipidemia E78.5 ; Gastroesophageal reflux disease without esophagitis K21.9 ; Screening for prostate cancer Z12.5 ; HBP (high blood pressure) I10 and ASCVD (arteriosclerotic cardiovascular disease) I25.10 Assessments Encounter Date Diagnosis (ICD Code) Assessment Notes Treatment Notes Treatment Clinical Notes Section Notes 03/17/2024 Dyslipidemia (ICD-10 - E78.5) 03/17/2024 Gastroesophageal reflux disease without esophagitis (ICD-10 - K21.9) 03/17/2024 Screening for prostate cancer (ICD-10 - Z12.5) 03/17/2024 HBP (high blood pressure) (ICD-10 - I10) 03/17/2024 ASCVD (arteriosclerotic cardiovascular disease) (ICD-10 - I25.10) Plan Of Treatment Medication Medication Name Sig Start Date Stop Date Notes Valsartan 160 MG 1 tablet Orally Once a day Bisoprolol Fumarate 5 MG 1 tab(s) orally once a day Atorvastatin Calcium 40 MG 1 tab(s) orally once a day hydroCHLOROthiazide 25 MG 1 tablet in th e morning Orally Once a day Omeprazole 40 MG 1 cap(s) orally once a day Next Appt Details Follow Up: 6 Months, Reason: Progress Notes * RIGOBERTO CABANOB:1960 (64 yo M)Acc No.[id number]:03/17/2024 Progress Notes Patient: JOAQUIM RAYMOND Provider: Consuelo Chowdhury M.D. :1960 A ge:63 Y S ex:Male Date:03/17/2024 Address:[address] [place] [address], [id number] Subjective: * Chief Complaints: * 1 . Check Up. 2. Needs labs with PSA & flu vaccine. * HPI: C ardiology: Pt presents today for a check up. Pt is fasting today. Pt sts that he is doing well and has no new concerns or complaints at this time. Denies : Chest Pain. D enies : Short of Breath. D enies : Palpitations. D enies : Leg Edema. Continues to follow with cardiology with no change in his regimen. * ROS: D ERMATOLOGY: no R tunde. n o H nilda. G ASTROENTEROLOGY: no N ausea. n o V omiting. U ROLOGY: no D ifficulty urinating. n o B lood in urine. * Medical History: H iatal hernia with GERD, H/O Hemrrhoid, HLP, Hypertension, ASCVD - s/p coronary stent. * Surgical History: C holecystectomy 2007, RT Rotator Cuff Repair - Dr. Villanueva 04/2015, Stent Placement - Dr Ferreira 06/07/2022, Right Shoulder Surgery, Muscle Repair - Dr. Villanueva 02/2023, Colonoscopy/ Dr. Kingsley 03/2023. * Family History: F ather: 66 yrs, kidney cancer. M other: alive 83 yrs, diagnosed with Hypertension. 2 brother(s) , 1 sister(s) . 2 son(s) - healthy. . Brother with CAD/[place]. * Social History: C URRENT TOBACCO USE S moking Status: P atient does NOT smoke. C affeine: tea, soda. Home smoke detector use: yes. Alcohol: Yes, Type: beer on occasion, Frequency: ,Years: , Determination:. * Medications: T aking hydroCHLOROthiazide 25 MG Tablet 1 tablet in the morning Orally Once a day , Taking Valsartan 160 MG Tablet 1 tablet Orally Once a day , Taking Diclofenac Sodium 75 MG Tablet Delayed Release 1 tablet as needed Orally Twice a day , Taking Aspirin 81 MG Tablet Delayed Release 1 tab(s) orally once a day , Taking Fish Oil 1200 MG Capsule 1 cap(s) orally once daily , Taking Atorvastatin Calcium 40 MG Tablet 1 tab(s) orally once a day , Taking Bisoprolol Fumarate 5 MG Tablet 1 tab(s) orally once a day , Taking Omeprazole 40 MG Capsule Delayed Release 1 cap(s) orally once a day , Not-Taking Cyclobenzaprine HCl 5 MG Tablet 1 tab(s) orally 3 times a day as needed , Not-Taking Meclizine HCl 25 MG Tablet 1 tab(s) orally 3 times a day , Not-Taking Advil 200 MG Tablet 1 tab(s) orally every 6 hours , Not-Taking methylPREDNISolone 4 MG Tablet Therapy Pack as directed , Not-Taking dexAMETHasone 4 MG Tablet 1 tab(s) orally 2 times a day , Discontinued Brilinta 60 MG Tablet 1 tab(s) orally 2 times a day , Discontinued Diovan HCT 160-12.5 MG Tablet 1 tab(s) orally once a day , Discontinued Meloxicam 15 MG Tablet 1 tab(s) orally once a day , Medication List reviewed and reconciled with the patient * Allergies: C efaclor: rash - Allergy, Cephalosporins. Objective: * Vitals: W t:250.8, Temp:98.0, BP:126/70, HR:62, Nurse:VICK, Ht: 69.50, BMI:36.50. * Examination: C ardiology: General Appearance: p leasant, NAD. Weight gain noted. H EENT: u nremarkable. C arotid upstroke: n ormal, no bruits. H eart sounds:?RRR, normal S1, S2. No chest wall tenderness. M urmur, click , gallop: n one. L ungs: c lear, no rales or wheezes. A bdomen: p ositive BS, soft, nontender. E xtremities: n o leg edema. Assessment: * Assessment: 1. D yslipidemia - E78.5 (Primary) 2 . G astroesophageal reflux disease without esophagitis - K21.9 3 . S creening for prostate cancer - Z12.5 ?4. H BP (high blood pressure) - I10 5 . A SCVD (arteriosclerotic cardiovascular disease) - I25.10 Plan: * Treatment: Value Reference Range C holesterol / HDL Ratio 3.77 0.00-4.99 - Ratio * C holesterol 166 <200 - mg/dL * H DL Cholesterol 44 >39 - mg/dL * L DL Cholesterol (Calculation) 89 <130 - mg/d L * L DL/HDL Ratio 2.0 <3.3 - Ratio * N on-HDL Cholesterol 122 <130 - mg/dL * T riglycerides 164 H <150 - mg/dL * Consuelo Chowdhury 03/19/2024 8 :42:31 AM >See phone encounter 2.?Gastroesophageal reflux disease without esophagitis? Refill Omeprazole Capsule Delayed Release, 40 MG, 1 cap(s), orally, once a day, 90, Refills 3.??3.?Screening for prostate cancer?LAB: P-PSA (Collection Date & Time - 03/17/2024 08:25 AM)?1.20* Value Reference Range P SA 1.20 <4.00 - ng/mL * Consuelo Chowdhury 03/19/2024 8 :42:31 AM >See phone encounter 4.?HBP (high blood pressure)? Refill hydroCHLOROthiazide Tablet, 25 MG, 1 tablet in the morning, Orally, Once a day, 90, Refills 3;?Refill Valsartan Tablet, 160 MG, 1 tablet, Orally, Once a day, 90, Refills 3;?Refill Bisoprolol Fumarate Tablet, 5 MG, 1 tab(s), orally, once a day, 90, Refills 3.?LAB: P-Comprehensive Metabolic Panel (CMP) (Collection Date & Time - 03/17/2024 08:25 AM)?gluc 114* Value Reference Range A /G Ratio 1.7 1.1-2.5 - * A lbumin 4.5 3.5-5.3 - g/dL * A lkaline Phosphatase 90 40-129 - IU/L * A LT (SGPT) 51 <5-55 - IU/L * A ST (SGOT) 26 <5-46 - IU/L * B ilirubin, Total 0.5 <0.2-1.2 - mg/dL * B UN 16 8-23 - mg/dL * C alcium 9.8 8.6-10.4 - mg/dL * C hloride 104 97-108 - mmol/L * C O2 25 22-32 - mmol/L * C reatinine 1.05 0.70-1.30 - mg/dL * G lucose 114 H 65-99 - mg/dL * P otassium 3.8 3.5-5.3 - mmol/L * S odium 143 135-145 - mmol/L * P rotein 7.1 6.0-8.3 - g/dL * e GFR by Creatinine 79 >59 - mL/min/1.73m2 * Consuelo Chowdhury 03/19/2024 8 :42:31 AM >See phone encounter * Follow Up: 6 Months * Images: Billing Information: * Visit Code: 24463 Office Visit, Est Pt., Level 4. * Procedure Codes: * Electronic signature of Consuelo Chowdhury MD on 10/22/2024 at 08:38 AM EDT Sign off status: Pending * Provider: Consuelo Chowdhury M.D. Date: 05/18/2023 Generated for Printi ng/Fatieshag/eTransmitting on: 0 10/22/2024 08:38 AM EDT History and Physical Notes * HPI (History of Present Illness) Category Sub-Category Detail Notes Category Not es Cardiology Short of Breath Continues to follow with cardiology with no change in his regimen Chest Pain Palpitations Leg Edema Examination Category Sub-Category Detail Notes Category Not es Cardiology Lungs: clear, no rales or wheezes HEENT: unremarkable Heart sounds: RRR, normal S1, S2. No chest wall tenderness Abdomen: positive BS, soft, n ontender Carotid upstroke: normal, no bruits Extremities: no leg edema Murmur, click , gallop: none General Appearance: pleasant, NAD. Weigh t gain noted
--- OUTSIDE RECORDS SUMMARY | 2024-05-27 09:45 | XMS_ITS ---
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 Name Role Phone Consuelo Chowdhury Primary Care Provider [phone] Jessica Gonzalez Unavailable [phone] Allergies Allergen (clinical drug ingredient) Drug/Non Drug Allergy documented on EMR Reaction Allergy Type Onset Date Status cefaclor Cefaclor rash Drug Allergy Active Medicinal cephalosporin and acting as antibacterial agent (FN) Cephalosporins Unknown Drug Allergy Active Results Component Value Reference Range Notes Influenza Screen (in house) Reviewed date:05/27/2024 03:50:06 PM Interpretation: Performing Lab: Notes/Report: results Neg CBC Fingerstick (in house) Reviewed date:05/27/2024 03:50:17 PM Interpretation: Performing Lab: Notes/Report: wbc 14.1 3.5 - 10 lym 15.6% 15 - 50 mid 4.2% 2 - 15 gran 80.2% 35 - 80 rbc 4.19 3.5 - 5.5 hgb 13.2 11.5 - 16.5 hct 38.7 35 - 55 mcv 92.4 75 - 100 mch 31.6 25 - 35 mchc 34.2 31 - 38 plat 126 100 - 400 Covid test (in house) Reviewed date:05/27/2024 03:49:55 PM Interpretation: Performing Lab: Notes/Report: Result: Neg CXR Reviewed date:05/28/2024 11:16:55 AM Interpretation:Normal Performing Lab: Notes/Report: Normal REASON FOR VISIT congestion & cough Medications Medication SIG (Take, Route, Frequency, Duration) Notes Start Date End Date Status Atorvastatin Calcium 80 MG 1 tablet Oral ly Once a day 03/19/2024 Active hydroCHLOROthiazide 25 MG 1 tablet in th e morning Orally Once a day Active Omeprazole 40 MG 1 cap(s) orally once a day Active Bisoprolol Fumarate 5 MG 1 tab(s) orally once a day Active Valsartan 160 MG 1 tablet Orally Once a day Active Diclofenac Sodium 75 MG 1 tablet as need ed Orally Twice a day Active Spacer/Aero-Holding Chambers - as directed 025 Active Fish Oil 1200 MG 1 cap(s) orally once daily Active Albuterol Sulfate HFA 108 (9 0 Base) MCG/ACT 1-2 puffs Inhalation every 4 hrs, prn 05/27/2024 Active Aspirin 81 MG 1 tab(s) orally once a day; Duration: 30 day(s) Active Benzonatate 200 MG 1 capsule Orally Three times a day 05/27/2024 Active Zithromax Z-Jeremias 250 MG 2 pills first day then one daily for 4 days orally as directed; Duration: 5 days 05/27/2024 Active Vital Signs Weight 247.0 lbs 05/27/2024 Blood pressure systolic 120 mm Hg 05/27/19 25 Blood pressure diastolic 70 mm Hg 025 Heart Rate 79 /min 05/27/2024 Height 69.50 in 05/27/2024 BMI 35.95 kg/m2 05/27/2024 Encounters Encounter Location Date Provider Diagnosis [facility] [address], [place] [id number] 05/27/2024 Jessica Gonzalez COVID-19 U07.1 and Bronchitis J40 Assessments Encounter Date Diagnosis (ICD Code) Assessment Notes Treatment Notes Treatment Clinical Notes Section Notes 05/27/2024 COVID-19 (ICD-10 - U07.1) Patient's covid test is no longer positive. He has finished paxlovid. 05/27/2024 Bronchitis (ICD-10 - J40) Plan Of Treatment Medication Medication Name Sig Start Date Stop Date Notes Spacer/Aero-Holding Chambers - as directed 05/27/2024 Albuterol Sulfate HFA 108 (9 0 Base) MCG/ACT 1-2 puffs Inhalation every 4 hrs, prn 05/27/2024 Benzonatate 200 MG 1 capsule Orally Thr ee times a day 05/27/2024 Zithromax Z-Jeremias 250 MG 2 pills first day then one daily for 4 days orally as directed; Duration: 5 days 05/27/2024 Treatment Notes Assessment Notes COVID-19 Patient's covid test is no longer positive. He has finished paxlovid. Next Appt Details Follow Up: via phone to repo rt test results, Reason: Progress Notes * RIGOBERTO CABANOB:1960 (64 yo M)Acc No.[id number]:05/27/2024 Progress Notes Patient: JOAQUIM RAYMOND Provider: OPAL Curtis :1960 A ge:64 Y S ex:Male Date:05/27/2024 Address:[address] [place] [address], [place] , [id number] Pcp:Consuelo Chowdhury Subjective: * Chief Complaints: * 1 . Congestion & cough. * HPI: E NT/respiratory: The pat states he started with c/o cough and congestion on Saturday. Pt states he and his had covid and he took Paxlovid and finished that on Saturday. 64 year old male presents with c/o cough d ry without any sputum production. c/o Fever. Denies : sore throat. * ROS: D ERMATOLOGY: no R tunde. n o H nilda. G ASTROENTEROLOGY: no N ausea. n o V omiting. n o D iarrhea.? U ROLOGY: no D ifficulty urinating. n [...] 65 yrs, kidney cancer. M other: alive 84 yrs, diagnosed with Hypertension. 2 brother(s) , 1 sister(s) . 2 son(s) - healthy. . Brother with CAD/[place]. * Social History: C URRENT TOBACCO USE S moking Status: P atient does NOT smoke. C affeine: tea, soda. Home smoke detector use: yes. Alcohol: Yes, Type: beer on occasion, Frequency: ,Years: , Determination:. * Medications: T aking Diclofenac Sodium 75 MG Tablet Delayed Release 1 tablet as needed Orally Twice a day , Taking Aspirin 81 MG Tablet Delayed Release 1 tab(s) orally once a day , Taking Fish Oil 1200 MG Capsule 1 cap(s) orally once daily , Taking Omeprazole 40 MG Capsule Delayed Release 1 cap(s) orally once a day , Taking hydroCHLOROthiazide 25 MG Tablet 1 tablet in the morning Orally Once a day , Taking Valsartan 160 MG Tablet 1 tablet Orally Once a day , Taking Bisoprolol Fumarate 5 MG Tablet 1 tab(s) orally once a day , Taking Atorvastatin Calcium 80 MG Tablet 1 tablet Orally Once a day , Medication List reviewed and reconciled with the patient * Allergies: C efaclor: rash - Allergy, Cephalosporins. Objective: * Vitals: W t:247.0, Temp:98.6, BP:120/70, HR:79, O2 Sat:97% on RA, Nurse:TEMI, Ht: 69.50, BMI:35.95. * Examination: E NT/Respiratory: General Appearance: appears not to feel well. E ars:?auditory canals normal bilaterally, TM's WNL. N ose : turbinates red, congested. S inuses : non tender bilaterally. O ral cavity : erythema without exudate on pharynx, PND present. N delgado : n o cervical lymphadenopathy. H eart : R RR, normal S1 S2, no murmurs. L ungs: expiratory wheezes, no rales. Assessment: * Assessment: 1. C OVID-19 - U07.1 (Primary) 2 . B virgie Key Plan: * Treatment: Value Reference Range r esults Neg * Pamela Cade 05/27/2024 2:0 2:45 PM > , Provider reviewed results while patient in office.Jessica Gonzalez 05/27/2024 3:50:03 PM > ?LAB: CBC Fingerstick (in house) (Collection Date & Time - 05/27/2024)* Value Reference Range w bc 14.1 3.5 - 10 * l ym 15.6% 15 - 50 * m id 4.2% 2 - 15 * g ran 80.2% 35 - 80 * r bc 4.19 3.5 - 5.5 * h gb 13.2 11.5 - 16.5 * h ct 38.7 35 - 55 * m cv 92.4 75 - 100 * m ch 31.6 25 - 35 * m chc 34.2 31 - 38 * p lat 126 100 - 400 * Pamela Cade 05/27/2024 2:0 3:10 PM > , Provider reviewed results while patient in office.LisaJessica Gloria 05/27/2024 3:50:12 PM > ?LAB: Covid test (in house) (Collection Date & Time - 05/27/2024)* Value Reference Range R esult: Neg * Pamela Cade 05/27/2024 2:0 2:19 PM > , Provider reviewed results while patient in office.Jessica Gonzalez 05/27/2024 3:49:52 PM > Notes: Patient's covid test is no longer positive. He has finished paxlovid.?? 2.?Bronchitis? Start Zithromax Z-Jeremias Tablet, 250 MG, 2 pills first day then one daily for 4 days, orally, as directed, 5 days, 1, Refills 0;?Start Benzonatate Capsule, 200 MG, 1 capsule, Orally, Three times a day, 30, Refills 1;?Start Albuterol Sulfate HFA Aerosol Solution, 108 (90 Base) MCG/ACT, 1-2 puffs, Inhalation, every 4 hrs, prn, 1, Refills 1;?Start Spacer/Aero-Holding Chambers Device, -, as directed, 1, Refills 0.?Imaging: CXR (Performed Date - 05/27/2024)?Normal* Mikaela Germain 05/28/2024 11:1 6:48 AM > see phone encounter * Procedure Codes: G 2211 Complex e/[place], [address] [place], [address] CAPILLARY BLOOD DRAW, 25581 CBC WITH AUTO DIFF, 87546 Flu Test- Nasal Swab, Modifiers: QW , 67509 COVID TEST IN HOUSE, Modifiers: QW , 3074F SYST BP LT 130 MM HG, 3078F DIAST BP < 80 MM HG * Follow Up: v ia phone to report test results * Images: Billing Information: * Visit Code: 69833 Office Visit, Est Pt., Level 3. * Procedure Codes: G2211 Complex e/[place]. [address] [place]. [address] CAPILLARY BLOOD DRAW. 23913 CBC WITH AUTO DIFF. 81521 Flu Test- Nasal Swab. Modifiers: QW 75491 COVID TEST IN HOUSE. Modifiers: QW 3074F SYST BP LT 130 MM HG. 3078F DIAST BP < 80 MM HG. * Electronic signature of OPAL Cody on 10/22/2024 at 08:38 AM EDT Sign off status: Pending * Provider: OPAL Curtis Date: 0 05/27/2024 Generated for Vasile hansen/Akin/eTransmitting on: 0 10/22/2024 08:38 AM EDT History and Physical Notes * HPI (History of Present Illness) Category Sub-Category Detail Notes Category Not es ENT/respiratory sore throat cough dry without any sput um production Fever Examination Category Sub-Category Detail Notes Category Not es ENT/Respiratory Oral cavity : erythema without exudate on pharynx, PND present Sinuses : non tender bilateral ly Ears: auditory canals norm al bilaterally, TM's WNL Neck : no cervical lymphade nopathy Heart : RRR, normal S1 S2, n o murmurs Lungs: expiratory wheezes, no rales General Appearance: appears not to feel well Nose : turbinates red, jackelyn ested
--- OUTSIDE RECORDS SUMMARY | 2024-10-22 08:38 | XMS_ITS | Patient Health Record ---
Author Organization [facility] Address [address] [facility] [address] [place] [id number] Care Team Providers Care Manager Solution Name Role Phone Consuelo Chowdhury Primary Care Provider JohnsonNestor toroa Unavailable [phone] Allergies Allergen (clinical drug ingredient) Drug/Non Drug Allergy documented on EMR Reaction Allergy Type Onset Date Status cefaclor Cefaclor rash Drug Allergy Active Medicinal cephalosporin and acting as antibacterial agent (FN) Cephalosporins Unknown Drug Allergy Active Results Component Value Reference Range Notes P-Comprehensive Metabolic Pa matt (CMP) Reviewed date:03/19/2024 08:42:50 AM Interpretation:gluc 114 Performing Lab: Notes/Report: Test performed by [facility] [address] [place] [address] , [address], [place] [address] Figueroa Fernandez MD, Physician Relations Manager CLIA: [id number] Sodium 143 135-145 mmol/L Potassium 3.8 3.5-5.3 [...] 164 Performing Lab: Notes/Report: Test performed by [facility], [address] , [address], [place] [address] Figueroa Fernandez MD, Physician Relations Manager CLIA: [id number] Cholesterol 166 <200 mg/dL Triglycerides 164 <150 [...] Interpretation:1.20 Performing Lab: Notes/Report: Test performed by [facility] [address] [place] [address] , [address], [place] [address] Figueroa Fernandez MD, Physician Relations Manager CLIA: [id number] PSA 1.20 <4.00 ng/mL Please note this is an ultrasensitive PSA assay with a lower limit of detection of 0.014 ng/mL. This test is performed by the Sonya ECLIA methodology. Values obtained with different assay methods or kits cannot be directly compared. CXR Reviewed date:05/28/2024 11:16:55 AM Interpretation:Normal Performing Lab: Notes/Report: Normal Covid test (in house) Reviewed date:05/27/2024 03:49:55 PM Interpretation: Performing Lab: Notes/Report: Result: Neg CBC Fingerstick (in house) Reviewed date:05/27/2024 [...] - 38 plat 126 100 - 400 Influenza Screen (in house) Reviewed date:05/27/2024 03:50:06 PM Interpretation: Performing Lab: Notes/Report: results Neg Reason For Referral No Information Medications Medication SIG (Take, Route, Frequency, Duration) Notes Start Date End Date Status Atorvastatin Calcium 80 MG 1 tablet Oral ly Once a day 03/19/2024 Active Diclofenac Sodium 75 mg TAKE ONE TABLET BY MOUTH TWICE DAILY --TAKE WITH FOOD-- do not crush, chew, OR split; Duration: 30 Active Benzonatate 200 MG 1 capsule Orally Three times a day 05/27/2024 Active Zithromax Z-Jeremias 250 MG 2 pills first day then one daily for 4 days orally as directed; Duration: 5 days 05/27/2024 Active Spacer/Aero-Holding Chambers - as directed 025 Active Fish Oil 1200 MG 1 cap(s) orally once daily Active Albuterol Sulfate HFA 108 (9 0 Base) MCG/ACT 1-2 puffs Inhalation every 4 hrs, prn 05/27/2024 Active Aspirin 81 MG 1 tab(s) orally once a day; Duration: 30 day(s) Active hydroCHLOROthiazide 25 MG 1 tablet in e morning Orally Once a day Active Omeprazole 40 MG 1 cap(s) orally once a day Active Bisoprolol Fumarate 5 MG 1 tab(s) orally once a day Active Valsartan 160 MG 1 tablet Orally Once a day Active Immunizations Vaccine Route Administration Date Status Comme nts COVID 19 Moderna IM Intramuscular 06/09/2020 Administered COVID 19 Moderna IM Intramuscular 07/07/2020 Administered COVID 19 Moderna Unknown 03/02/2021 Administered Problems Problem Type SNOMED Code ICD Code Onset Dates Problem Status W/U Status Risk Notes Problem Essential hypertension (67806805) Essential (primary) hypertension (I10) Active confirmed Problem Coronary arteriosclerosis (21488104) ASCVD (arteriosclerotic cardiovascular disease) (I25.10) Active confirmed Problem Seasonal allergy (563495506) Seasonal allergies (J30.2) Active confirmed Problem Gastroesophageal reflux disease without esophagitis (400698729) Gastroesophageal reflux disease without esophagitis (K21.9) Active confirmed Problem HBP - High blood pressure (08717796) HBP (high blood pressure) (I10) Active confirmed Problem Dyslipidemia (453204198) Dyslipidemia (E78.5) Active confirmed Problem Hypertension (59316723) Uncontrolled hypertension (I10) Active confirmed Vital Signs Heart Rate 79 /min 05/27/2024 Blood pressure diastolic 70 mm Hg 05/27/2024 Height 69.50 in 05/27/2024 Blood pressure systolic 120 mm Hg 05/27/2024 Weight 247.0 lbs 05/27/2024 BMI 35.95 kg/m2 05/27/2024 Encounters Encounter Location Date Provider Diagnosis [facility] [address] [facility] [address] [place] [id number] 03/17/2024 R Mello Chowdhury Dyslipidemia E78.5 ; Gastroesophageal reflux disease without esophagitis K21.9 ; Screening for prostate cancer Z12.5 ; HBP (high blood pressure) I10 and ASCVD (arteriosclerotic cardiovascular disease) I25.10 [facility] [address] [place] [id number] 05/27/2024 Jessica Gonzalez COVID-[address] [facility] [address] [place] [id number] 03/09/2024 R Mello Luciana Gastroesophageal ref lux disease without esophagitis K21.9 [facility] [address] [place] [id number] 03/19/2024 R Mello Luciana [facility]lipidemia [facility]78.5 [facility] [address] [place] [id number] 05/20/[address] [facility] [address] [place] [id number] 05/28/2024 Jessica Gonzalez Assessments Encounter Date Diagnosis (ICD Code) Assessment Notes Treatment Notes Treatment Clinical Notes Section Notes 03/09/2024 Gastroesophageal reflux disease without esophagitis (ICD-10 - K21.9) 03/17/2024 Dyslipidemia (ICD-10 - E78.5) 03/19/2024 Dyslipidemia (ICD-10 - E78.5) 05/27/2024 Bronchitis (ICD-10 - J40) 05/27/2024 COVID-19 (ICD-10 - U07.1) Patient's covid test is no longer positive. He has finished paxlovid. 03/17/2024 Gastroesophageal reflux disease without esophagitis (ICD-10 - K21.9) 03/17/2024 Screening for prostate cancer (ICD-10 - Z12.5) 03/17/2024 HBP (high blood pressure) (ICD-10 - I10) 03/17/2024 ASCVD (arteriosclerotic cardiovascular disease) (ICD-10 - I25.10) Plan Of Treatment No Information Insurance Providers Payer Name Payer Address Payer Phone Subscriber Number Group Number Insured Name Patient Relationship to Insured Coverage Start Date Coverage End Date [employer] (MEDICAR E) [address] [address] [place] [address] [id number] JOAQUIM CABAN Self - patient is the insured Medical (General) History Medical History History ICD Code Hiatal hernia with GERD H/O Hemrrhoid HLP Hypertension ASCVD - s/p coronary stent Surgical History Surgery Date(Month/Year) Cholecystectomy 2007 RT Rotator Cuff Repair - Dr. Villanueva 05/04 15 Stent Placement - Dr Ferreira 06/07/2022 Right Shoulder Surgery, Muscle Repair - Dr. Villanueva 02/2023 Colonoscopy/ Dr. Kingsley 03/2023
--- OUTSIDE RECORDS SUMMARY | 2024-10-22 08:38 | XMS_ITS | Clinical Summary ---
Author Organization [facility] ([place], [place], [place], [place]) Address [address] [place] [address] Care Team Providers Care Automatic Glove Turner And Former Name Role Phone Ric Chowdhury MD Primary Care Provider +1- [phone] Allergies Active Allergy Reactions Criticality Noted Date Comments Ciprofloxacin Hives High 11/01/2022 Medications multivitamin with minerals tablet Take 2 tablets by mouth. Active ascorbic acid, vitamin C, (VITAMIN C) 1000 MG tablet Take 1 tablet (1,000 mg total) by mouth. Active atorvastatin (LIPITOR) 40 MG tablet Take 1 tablet (40 mg total) by mouth daily. 02/12/2023 Active bisoprolol (ZEBETA) 5 MG tablet Take 1 tablet (5 mg total) by mouth. 06/18/2022 Active clopidogreL (PLAVIX) 75 mg tablet Take 1 tablet (75 mg total) by mouth daily. 01/30/2023 Active omega-3 fatty acids-fish oil (Fish OiL) 340-1,000 mg Cap per capsule Take 1 capsule (1 g total) by mouth. Active omeprazole (PriLOSEC) 40 MG capsule Take 1 capsule (40 mg total) by mouth daily. 02/12/2023 Active valsartan (DIOVAN) 160 MG tablet Take 1 tablet (160 mg total) by mouth daily. 02/12/2023 Active aspirin 81 MG EC tablet Take 1 tablet (81 mg total) by mouth daily. Active Family History Medical History Relation Name Comments Kidney cancer Father Breast cancer Mother High blood pressure Mother Relation Name Status Comments Father Mother Social History Tobacco Use Types Packs/Day Years Used Date Smoking Tobacco: Former Cigarettes Smokeless Tobacco: Never Tobacco Cessation:Counseling Given: No Alcohol Use Standard Drinks/Week Comments Yes 0 (1 standard drink = 0.6 oz pure alcohol) 2 drinks a week, beer or whiskey Family and Community Support Answer Margarito e Recorded Help with Day to Day Activities Not on file 05/03/2023 Feeling Lonely or Isolated Not on file 05/03 Educational Attainment Answer Date Tim rded Speak language other than Occitan at home Not on file 05/03/2023 Want help with school or training Not on file 05/03/2023 Substance Use Answer Date Recorded Used prescription meds for non-medical reasons N ot on file 05/03/2023 Used illegal drugs past 12 months Not on file 05/03/2023 Sex and Gender Information Value Date Recorded Sex Assigned at Not on file Legal Sex Male 6:33 PM CDT Gender Identity Not on file Sexual Orientation Not on file Last Filed Vital Signs Vital Sign Reading Time Taken Comments Blood Pressure 143/80 03/22/2023 10:48 AM EST Pulse 66 03/22/2023 10:48 AM EST Temperature 36.3 C (97.3 F) 03/22/2023 10:20 AM EST Respiratory Rate 18 03/22/2023 10:48 AM EST Oxygen Saturation 97% 03/22/2023 10:48 AM EST Inhaled Oxygen Concentration - - Weight 111.1 kg (245 lb) 03/22/2023 9:12 AM EST Height 182.9 cm (6') 03/06/2023 11:04 AM EST Body Mass Index 33.23 03/06/2023 11:04 AM EST Plan of Treatment Health Maintenance Due Date Last Done Comments CT Colonography 1959 FOBT/FIT 1959 Fit-DNA (Cologuard) 1959 Sigmoidoscopy 1959 Depression Screening (12+) 1971 HIV Screening 1974 Hepatitis C Screening 1977 DTAP/TDAP/TD VACCINES (1 - Tdap) 1978 Lipid Panel 1994 Pneumococcal 50+ years (1 of 1 - PCV) 2009 Shingles Vaccine (Zoster) (1 of 2) 2009 COVID-19 VACCINE (4 - season) 2023 03/02/2021, 07/07/2020, 06/09/2020 Tobacco Cessation Counseling and Screening (12+) 03/22/2024 03/22/2023 Falls Risk Screening 04/15/2024 Influenza Vaccine (#1) 2024 Colonoscopy 03/22/2033 03/22/2023 Colorectal Cancer Screening 03/22/2033 Respiratory Syncytial Virus (RSV) Adult or (1 - 1-dose 75+ series) 2034 Insurance [place] CARDONA [id number] [facility] CHOICE PLUS Advance Directives For more information, please contact: [phone] * Full Code (Latest Code Status on File) Date Activated Date Inactivated Comments 03/22/2023 8:04 AM 03/22/2023 11:53 AM -Attempt Re suscitation if person has no pulse and is not breathing. -If no pulse or not breathing attempt CPR/CODE. -Call Rapid Response if patient is in distress. Care Teams Automatic Glove Turner And Former Relationship Specialty Start Date End Date Ric Chowdhury MD [address] [facility] [address] [place] [id number] PCP - General Family Medicine 03/06/23
--- OUTSIDE RECORDS SUMMARY | 2024-10-22 08:39 | XMS_ITS | Referral Summary ---
Author Organization [facility] ([place], [place], [place], [place]) Address [address] [place] [address] Care Team Providers Care Wrap Turner Name Role Phone Ric Chowdhury MD Primary Care Provider +1- [phone] Allergies Active Allergy Reactions Criticality Noted Date [...] (81 mg total) by mouth daily. Active Social History Tobacco Use Types Packs/Day Years [...] Date Tim rded Speak language other than Sri Lankan at home Not on file 05/03/2023 Want [...] 03/06/2023 11:04 AM EST Plan of Treatment Not on file Insurance [place] CARDONA [id number] [facility] CHOICE PLUS Advance Directives For more information, please contact: [phone] * Full Code (Latest Code Status on File) Date Activated Date Inactivated Comments 03/22/2023 8:04 AM 03/22/2023 11:53 AM -Attempt Re suscitation if person has no pulse and is not breathing. -If no pulse or not breathing attempt CPR/CODE. -Call Rapid Response if patient is in distress. Care Teams Wrap Turner Relationship Specialty Start Date End Date Ric Chowdhury MD [address] [facility] [address] [place] [address] PCP - General Family Medicine 03/06/23
--- OUTSIDE RECORDS SUMMARY | 2024-10-22 08:39 | XMS_ITS | Clinical Summary ---
Author Organization [facility] Address [address] [place] [address] Care Team Providers Care Design Printing Machine Set Up Operator Name Role Phone Ric Chowdhury MD Primary Care Provider +1- [phone] Allergies Active Allergy Reactions Criticality Noted Date Comments Ciprofloxacin Hives High 11/01/2022 Medications Aspirin Low Dose 81 MG EC tablet Take 1 tablet (81 mg) by mouth 1 (one) time each day. 3 Active atorvastatin (Lipitor) 40 MG tablet Take 1 tablet (40 mg) by mouth every night. for cholesterol 3 Active bisoprolol (Zebeta) 5 MG tablet Take 1 tablet (5 mg) by mouth every night. 3 Active valsartan (Diovan) 160 MG tablet Take 1 tablet (160 mg) by mouth 1 (one) time each day. 3 Active omega-3 (Fish Oil) 1000 MG capsule Take 1 capsule (1,000 mg) by mouth 1 (one) time each day. Active ascorbic acid (vitamin C) 1000 MG tablet Take 1 tablet (1,000 mg) by mouth 1 (one) time each day. Active Multiple Vitamins-Minera ls (Multivitamin Men 50+) tablet Take 2 tablets by mouth 1 (one) time each day. Active hydroCHLOROthia zide (HYDRODiuril) 25 MG tablet Take 1 tablet (25 mg) by mouth 1 (one) time each day. 4 Active omeprazole (PriLOSEC) [address] capsule Take 1 capsule (40 mg) by mouth 1 (one) time each day. 4 Active valsartan-hydro CHLOROthiazide (Diovan-HCT) 160-12.5 MG tablet Take 1 tablet by mouth 1 (one) time each day. Active Active Problems Problem Noted Date Diagnosed Date Hypertension 02/07/2023 02/07/2023 Hyperlipidemia 02/07/2023 02/07/2023 History of coronary artery stent placement 02/0702/07/2023 Dyspnea 02/07/2023 02/07/2023 Coronary artery disease 02/07/2023 02/08/20 Anterior dislocation of right shoulder 02/07/2023 Abnormal cardiovascular stress test 02/07/2023 02/07/2023 Traumatic incomplete tear of right rotator cuff 02/07/2023 Complete tear of right rotator cuff 04/26/2015 Right shoulder injury 04/26/2015 Family History Medical History Relation Name Comments Conversions - Other Father Patient' s father is Other cancer Father Anesthesia problems Neg Hx Malig Hyperthermia Neg Hx Relation Name Status Comments Father Social History Tobacco Use Types Packs/Day Years Used Date Smoking Tobacco: Former Cigarettes 1 25 1 - 2004 Smokeless Tobacco: Never Tobacco Cessation:Counseling Given: Not Answered Comments:Former smoker, stopped smoking in distant past Alcohol Use Standard Drinks/Week Comments Yes 3 (1 standard drink = 0.6 oz pur e alcohol) PHQ-2 Answer Date Recorded Patient Health Questionnaire-2 Score 0 10/31/2022 PHQ-2A Answer Date Recorded Patient Health Questionnaire-2 Score 0 10/31/2022 Sex and Gender Information Value Date Recorded Sex Assigned at Not on file Legal Sex Male 7:16 PM EDT Gender Identity Not on file Sexual Orientation Not on file Last Filed Vital Signs Vital Sign Reading Time Taken Comments Blood Pressure 154/90 07/18/2023 9:39 AM EDT Pulse 70 05/28/2023 4:11 PM EST Temperature 36.9 C (98.4 F) 02/20/2023 1:25 PM EST Respiratory Rate 18 02/20/2023 2:15 PM EST Oxygen Saturation 96% 05/28/2023 4:11 PM EST Inhaled Oxygen Concentration - - Weight 113 kg (250 lb) 07/18/2023 9:39 AM EDT Height 182.9 cm (6') 07/18/2023 9:39 AM EDT Body Mass Index 33.91 07/18/2023 9:39 AM EDT Plan of Treatment Health Maintenance Due Date Last Done Comments [facility]-Hepatitis C Screening 1959 [facility]-/Child/Adol SDOH Screenings 1959 [facility]- SDOH Screenings 1977 [facility]-Adult SDOH Screenings 1977 [facility]-DTaP,Tdap,and Td Vaccines (1 - Tdap) 1978 CT Colonography 2004 FIT-DNA 2004 FIT 2004 FOBT 2004 Sigmoidoscopy 2004 [facility]-Pneumococcal Vaccine: 50+ Years (1 of 1 - PCV) 2009 [facility]-Zoster Vaccines (1 of 2) 2009 [facility]-RSV Vaccine: 60+ Years or (1 - Risk 60-74 years 1-dose series) 2019 [facility]-Depression Screening 11/01/2023 10/31/2022 [id number] Vaccine ( - 2023- season) 2023 03/02/2021, 07/07/2020, 06/09/2020 [facility]-Influenza Vaccine (#1) 2024 Colonoscopy 03/22/2033 03/22/2023 [facility]-Colorectal Cancer Screening 03/22/2033 [facility]-Obesity Intervention Completed 024, 05/28/2023, 04/23/2023, Additional history exists HPV Vaccines Aged Out No longer eligi ble based on patient's age to complete this topic [facility]-HIB Vaccines Aged Out No longer e ligible based on patient's age to complete this topic [facility]-Hepatitis A Vaccines Aged Out No longer eligible based on patient's age to complete this topic [facility]-IPV Vaccines Aged Out No longer e ligible based on patient's age to complete this topic [facility]-Rotavirus Vaccines Aged Out No lo nger eligible based on patient's age to complete this topic Medical Devices Implanted Type Area Rn Cardiac Cath Device Identifier Shelf Expiration Date Model / Serial / Lot [place] All Suture Qfix 2.8mm - [id number] - [id number] Implanted:Qty : 2 on 02/20/2023 by Hill Julien MD at [facility] [place] Right: Shoulder [employer] (Acu[employer])-[id number] 10/04/2025 / / [id number] [place] Ultra Twinfix 5.5 - [id number] - [id number] Implanted:Qty : 1 on 02/20/2023 by Hill Julien MD at [facility] [place] Right: Shoulder [employer] (Acufex)-[id number] 08/30/2027 [id number] / [id number] / [id number] Insurance [facility] [employer] Care Teams Design Printing Machine Set Up Operator Relationship Specialty Start Date End Date Ric Chowdhury MD [address] [place] [address] [place], [place] [address] PCP - General 08/26/20
--- OUTSIDE RECORDS SUMMARY | 2024-10-22 08:39 | XMS_ITS | Encounter Summary ---
Author Organization Healthcare Address [address] [place] [address] Care Team Providers Care Egg Gatherer Name Role Phone Ric Chowdhury MD Primary Care Provider [phone]- [phone] Encounter Details Date Type Department Care Team (Late st Contact Info) Description 09/04/2022 Orders Only External Location [address] [place] [address] Ric Chowdhury MD [address] [place] [address] Social History Tobacco Use Types Packs/Day Years Used Date Smoking Tobacco: Former Comments:Former smoker, stop ped smoking in distant past Sex and Gender Information Value Date Recorded Sex Assigned at Not on file Legal Sex Male 7:16 PM EDT Gender Identity Not on file Sexual Orientation Not on file documented as of this encounter Plan of Treatment Not on file documented as of this encounter Procedures Procedure Name Priority Date/Time Associated Diagnosis Comments XR OUTSIDE IMAGES 09/04/2022 4:11 PM EDT documented in this encounter Results * XR OUTSIDE IMAGES (09/04/2022 4:11 PM EDT) Anatomical Region Laterality Modality Radiographic Arleen ging 09/04/2022 4:11 PM EDT us Ric Chowdhury MD IMG XR PROCEDURES Final Re sult documented in this encounter Visit Diagnoses Not on filedocumented in this encounter Care Teams Egg Gatherer Relationship Specialty Start Date End Date Ric Chowdhury MD [address] [place] [address] PCP - General 08/26/20 documented as of this encounter
--- OUTSIDE RECORDS SUMMARY | 2024-10-22 08:39 | XMS_ITS | Encounter Summary ---
Author Organization Healthcare Address [address] [place] [address] Care Team Providers Care Department [employer] Name Role Phone Ric Chowdhury MD Primary Care Provider [phone]- [phone] Encounter Details Date Type Department Care Team ([facility] st Contact Info) Description 01/28/2015 Orders Only External Location [address] [place] [address] Provider, External Social History Tobacco Use Types Packs/Day Years Used Date Smoking Tobacco: Never Assessed Sex and Gender Information Value Date Recorded Sex Assigned at Not on file Legal Sex Male 7:16 PM EDT Gender Identity Not on file Sexual Orientation Not on file documented as of this encounter Plan of Treatment Not on file documented as of this encounter Procedures Procedure Name Priority Date/Time Associated Diagnosis Comments XR OUTSIDE IMAGES 01/28/2015 9:09 PM EDT documented in this encounter Results * XR OUTSIDE IMAGES (01/28/2015 9:09 PM EDT) Anatomical Region Laterality Modality Radiographic Arleen ging 01/28/2015 9:09 PM EDT us External Provider IMG XR PROCEDURES Final Result documented in this encounter Visit Diagnoses Not on filedocumented in this encounter Care Teams Department Head [employer] Relationship Specialty Start Date End Date Ric Chowdhury MD [address] [place] [id number] PCP - General 08/26/20 documented as of this encounter
--- OUTSIDE RECORDS SUMMARY | 2024-10-22 08:39 | XMS_ITS | Encounter Summary ---
Author Organization Healthcare Address [address] [place] [address] Care Team Providers Care Wire Mesh Gate Assembler Name Role Phone Ric Chowdhury MD Primary Care Provider [phone]- [phone] Encounter Details Date Type Department Care Team (Late st Contact Info) Description 03/25/2015 Orders Only External Location [address] [place] [address] Provider, External Social History Tobacco Use Types [...] Procedure Name Priority Date/Time Associated Diagnosis Comments MR OUTSIDE IMAGES 03/25/2015 1:03 PM EST documented in this encounter Results * MR transfer of outside films (03/25/2015 1:03 PM EST) Anatomical Region Laterality Modality Magnetic Resonan ce 03/25/2015 1:03 PM EST us External Provider IMG MRI PROCEDURES Final Resul t documented in this encounter Visit Diagnoses Not on filedocumented in this encounter Care Teams Wire Mesh Gate Assembler Relationship Specialty Start Date End Date Ric Chowdhury MD [address] [place] [id number] PCP - General 08/26/20 documented as of this encounter
[2024-10-22 09:18] LABS: Hematocrit 39.6 % (42.0-52.0); Hemoglobin 13.2 g/dL (14.1-18.0); Immature Granulocytes % 0.2 %; Mean Corpuscular HGB Conc 33.3 g/dL (31.8-35.4); Mean Corpuscular Hemoglobin 31.1 pg (27.0-31.2); Mean Corpuscular Volume 93.4 fl (80-94); Nucleated Red Blood Cells % 0 %; Platelet Count 170 K/mm3 (142-424); Red Blood Count 4.24 M/mm3 (4.60-6.20); Red Cell Distribution Width-SD 42.2 fL; White Blood Count 4.3 K/mm3 (4.8-10.8)
[2024-10-22 09:54] LABS: Alanine Aminotransferase 47 U/L (12-78); Albumin Level 4.2 g/dl (3.5-5.0); Alkaline Phosphatase 81 U/L (38-126); Anion Gap 14.8 mEq/L (5-15); Aspartate Amino Transferase 34 U/L (17-59); Bilirubin,Direct 0.1 mg/dl (0.0-0.4); Bilirubin,Indirect 0.5 mg/dL (0.0-0.9); Bilirubin,Total 0.6 mg/dl (0.2-1.3); Bilirubin,Unconjugated 0.5 mg/dL (0.0-1.1); Blood Urea Nitrogen 13 mg/dl (9-20); Calcium 9.6 mg/dl (8.4-10.2); Carbon Dioxide 31 mmol/L (22.0-30.0); Chloride 97 mmol/L (98-107); Cholesterol 167 mg/dl (140-200); Creatinine,Serum 0.70 mg/dl (0.66-1.25); Estimated Glomerular Filt Rate 113 ml/min (>60); GFR (African American) 137 ML/MIN (>60); Glucose 129 mg/dl (74-100); HDL Cholesterol 36 mg/dl (40-60); Magnesium 1.5 mg/dl (1.6-2.3); Potassium 3.8 mmoL/L (3.5-5.1); Sodium 139 mmol/L (136-145); Total Protein,Serum 6.7 g/dl (6.3-8.2); Triglycerides 189 mg/dl (30-150)
[2024-10-22 10:12] LABS: Free T4 (Free Thyroxine) 0.90 ng/dl (0.78-2.19)
[2024-10-22 10:24] LABS: Thyroid Stimulating Hormone 1.05 uIU/mL (0.465-4.68)
== END 2024-10-22 23:59 | disposition home or self-care (01) ==
LOC: LAB 08:36
PROVIDERS: PCP Family Medicine; Visit Provider Nurse Practitioner Family
DX: G47.33 Obstructive sleep apnea (adult) (pediatric) (principal); I25.118 Atherosclerotic heart disease of native coronary artery with other forms of angina pectoris; E78.2 Mixed hyperlipidemia; R94.31 Abnormal electrocardiogram [ECG] [EKG]; Z95.5 Presence of coronary angioplasty implant and graft; I37.1 Nonrheumatic pulmonary valve insufficiency; K21.9 Gastro-esophageal reflux disease without esophagitis; I11.9 Hypertensive heart disease without heart failure
CPT/HCPCS: 36415; 80048; 80061; 80076; 83735; 84439; 84443; 85025